=== PATIENT | female | born 1945 | race Caucasian/White ===

== ENCOUNTER 2016-11-10 14:20 | Inpatient (IN) | payer OTHER, MEDICARE ==
[~2016-11-10] VITALS: Ht 170.2 cm; Wt 77.1 kg
--- NOTE | 2016-11-10 14:38 | NUR ---
71 YEAR OLD FEMALE SENT TO ER BY HER PMD, PT STATES THAT SHE HAS BREAST CANCER AND THAT SINCE 09/18 SHE HAS NOT BEEN FEELING WELL, PT WAS ADMITTED TO [facility] 09/18 FOR PNA AND STATES THAT SHE STILL HAS A COUGH FEELS WEAK, AFEBRILE AT THIS TIME. PMD OFFICE CALLED AHEAD AND STATED THAT PT HAD + BANDS.PT PALE, STATES THAT SHE CANT WALK FAR WITHOUT GETTING WINDED
--- NOTE | 2016-11-10 14:55 | NUR ---
PT TO ER ROOM 4. AWAITING EVAL
--- NOTE | 2016-11-10 15:09 | ED DYSPNEA/ASTHMA COMPLAINT ---
See Addendum History of Present Illness General Chief Complaint: General Adult Stated Complaint: SIB DR FOR COUGHING,FEVER, Source: patient Exam Limitations: no limitations Vital Signs & Intake/Output Vital Signs & Intake/Output Vital Signs Date Time Temp Pulse Resp B/P B/P Pulse O2 O2 Flow FiO2 Mean Ox Delivery Rate 11/12 0656 99.3 87 20 110/68 92 Room Air 11/12 0000 Room Air 11/11 2215 98.2 97 20 122/70 94 Room Air 11/11 1435 Room Air ED Intake and Output 11/12 0000 11/11 1200 Intake Total 1190 750 Output Total Balance 1190 750 Intake, IV 500 750 Intake, Oral 690 Patient 170 lb Weight Weight Reported by Patient Measurement Method Allergies Coded Allergies: No Known Allergies (11/10/16) Triage Note: 71 YEAR OLD FEMALE SENT TO ER BY HER PMD, PT STATES THAT SHE HAS BREAST CANCER AND THAT SINCE 09/18 SHE HAS NOT BEEN FEELING WELL, PT WAS ADMITTED TO [facility] 09/18 FOR PNA AND STATES THAT SHE STILL HAS A COUGH FEELS WEAK, AFEBRILE AT THIS TIME. PMD OFFICE CALLED AHEAD AND STATED THAT PT HAD + BANDS.PT PALE, STATES THAT SHE CANT WALK FAR WITHOUT GETTING WINDED Triage Nurses Notes Reviewed? yes Onset: Gradual Duration: constant Timing: recent history Severity: moderate HPI: Patient is a 71-year-old female with a past medical history of breast cancer in which in 1990 she received radiation therapy for right-sided breast cancer concerns 1999 she then received chemotherapy and had a meniscectomy performed and recently patient just finished up approximate 16 weeks of chemotherapy last chemotherapy was performed August 28 in which patient's oncologist is at [facility]. Patient does state that she has a appointment for a outpatient procedure to remove concerns of a lump to patient's right meniscectomy region. Patient however does state that on September 18 she was admitted to [facility] for concerns of pneumonia and ever since patient has been complaining of persistent white cough dyspnea on exertion and shortness of breath denies weakness and fatigue and tactile fevers and chills. Denies any chest pain and arm pain jaw pain nausea vomiting melena (RACHAEL PRIDE,EYAL) Reconcile Medications Aspirin (Children's Aspirin) 81 MG TAB.CHEW 1 TAB PO DAILY Heart Health Multiple Vitamin (Multivitamins) 1 EACH TABLET 1 TAB PO DAILY Supplement Mvi, Adult No.1 With Vit K (M.v.i. Adult) 200-150/10 VIAL 1 Vial IV PER MD Suppl (Reported) (JETT SILVA,YOHANA) Past History Travel History Traveled to [place] past 21 day No Medical History Any Pertinent Medical History? see below for history Neurological: NONE EENT: NONE Cardiovascular: NONE Respiratory: pneumonia Gastrointestinal: NONE Hepatic: NONE Renal: NONE Musculoskeletal: NONE Psychiatric: NONE Endocrine: NONE Blood Disorders: NONE Cancer(s): breast cancer WELL DIGGER/Reproductive: NONE Surgical History Surgical History: non-contributory Psychosocial History What is your primary language Nigerien Tobacco Use: Never used ETOH Use: denies use Illicit Drug Use: denies illicit drug use Family History Hx Contributory? No (EYAL WILSON) Review of Systems Review of Systems Constitutional: Reports: see HPI, malaise. EENTM: Reports: see HPI. Respiratory: Reports: see HPI, cough, short of breath. Cardiovascular: Reports: see HPI. Denies: chest pain, peripheral edema. GI: Reports: no symptoms. Genitourinary: Reports: no symptoms. Musculoskeletal: Reports: no symptoms. Skin: Reports: no symptoms. Neurological/Psychological: Reports: no symptoms. Hematologic/Endocrine: Reports: no symptoms. Immunologic/Allergic: Reports: no symptoms. All Other Systems: Reviewed and Negative (EYAL WILSON) Physical Exam Physical Exam General Appearance: no apparent distress, alert, comfortable Respiratory: quiet respiration, decreased breath sounds Comments: Well-developed well-nourished person in no acute distress HEENT: Normal EENT exam, Neck: Supple, no lymphadenopathy, normal range of motion without pain or tenderness Back: Nontender, no CVA tenderness. Cardiovascular: Regular rate and rhythms no murmurs rubs or gallops, normal JVP Abdomen: Soft, nontender nondistended, no appreciable organomegaly. Normal bowel sounds. No ascites Extremity: No edema, no calf tenderness to palpation, normal and equal pulses. Neuro: Alert oriented x3, motor sensory normal, Skin: No appreciable rash on exposed skin, skin is warm and dry. Psych: Mood and affect is normal, memory and judgment is normal. Core Measures ACS in differential dx? No Severe Sepsis Present: No Septic Shock Present: No (EYAL WILSON) Progress Differential Diagnosis: asthma, AMI, bronchitis, costochondritis, CHF, COPD, musculoskeletal pain, pericarditis, pulmonary embolism, pneumonia, pneumothorax, rib fracture, unstable angina Plan of Care: Orders Procedure Date/time Status PROTHROMBIN TIME 11/12 06 Active CBC WITHOUT DIFFERENTIAL 11/12 599 Active BASIC ELECTROLYTES PLUS BUN&CR 11/12 599 Complete RT: Evaluation 11/11 1435 Active THERAPIST ORDERS 11/11 UNK Complete MISSING MEDICATION FORM 11/11 UNK Active Current Medications Sig/Clarissa Start time Last Medication Dose Stop Time Status Admin Senna 187 MG AT BEDTIME 11/12 2200 AC (Senokot) Docusate Sodium 100 MG BID 11/12 1000 AC (Colace) Polyethylene Glycol 17 GM DAILY 11/12 1000 AC (Miralax) Aspirin 81 MG DAILY 11/11 1000 AC 11/11 (Aspirin) 0920 Multivitamins 1 TAB DAILY 11/11 1000 AC Therapeutic (Theragran-M Vitamins Tabs) Guaifenesin 600 MG Q12 11/11 0045 AC 11/11 (Mucinex) 2146 Enoxaparin Sodium 80 MG BID 11/10 2323 AC 11/11 (Lovenox) 2146 Acetaminophen 650 MG Q6P PRN 11/10 2230 AC (Tylenol) Acetaminophen 1,000 MG Q6P PRN 11/10 2230 AC (Ofirmev) Morphine Sulfate 2 MG Q4P PRN 11/10 2230 AC (Morphine) Laboratory Tests 11/12/16 0630: Anion Gap 8, Estimated GFR > 60, BUN/Creatinine Ratio 5.0 L, PT Pending, INR Pending, CBC w Diff Pending, WBC Pending, RBC Pending, Hgb Pending, Hct Pending, MCV Pending, MCH Pending, RDW Pending, Plt Count Pending, MPV Pending, PUBS MCHC Pending PATIENT: LELAND TAYLOR PRESENT AGE: 71 PATIENT ACCOUNT NO: [id number] : 47 LOCATION: X[facility] ORDERING PHYSICIAN: RUBI PATIÑO MD SERVICE DATE: 11/10/16 EXAM TYPE: RAD - X[facility]-CHEST XRAY, PA AND LATERAL EXAMINATION: XR CHEST CLINICAL INFORMATION: Cough COMPARISON: None TECHNIQUE: 2 views of the chest were obtained. FINDINGS: There is no evidence of acute parenchymal disease, pneumothorax, or pleural effusion. Heart normal size. No evidence of pulmonary edema. There is some pleural thickening seen posteriorly along the left hemithorax. Port catheter in place with tip at the level of the caval atrial junction. IMPRESSION: No acute disease. DICTATED BY: Anson GUILLAUME MD Patient on examination was no apparent distress denies any chest pain at this time my suspicion of pulmonary embolism is extremely low. Patient does have persistent coughing while in her bed. Patient was given breathing treatment for symptomatic relief of decreased breath sounds noted on exam. Patient prior to arrival does have significant concerns of bandemia cultures were obtained. CT scan was remarkable for concerns of pneumonia. Discussed a short Rubi Patiño MD who advised patient to be admitted for concerns and the bandemia and pneumonia. Due to patient's history of immunocompromised chemotherapy and recent hospitalization for pneumonia Fortaz Vanco was ordered. (RACHAEL PRIDE,EYAL) Diagnostic Imaging: Viewed by Me: CT Scan. Radiology Impression: SEE COMMENTS Initial ED EKG: NSR, SINUS RHYTHM OF 92 BPM Comments: PATIENT: LELAND TAYLOR PRESENT AGE: 71 PATIENT ACCOUNT NO: [id number] : 47 LOCATION: [facility] ORDERING PHYSICIAN: EYAL PRIDE SERVICE DATE: 11/10/16 EXAM TYPE: CAT - CT ABD & PELVIS W IV CONTRAST; CT CHEST W IV CONTRAST EXAMINATION: CT CHEST WITH CONTRAST CT ABDOMEN AND PELVIS WITH CONTRAST CLINICAL INFORMATION: Cough for 6 weeks. History of breast cancer. COMPARISON: None. TECHNIQUE: Multidetector volumetric imaging was performed through the chest, abdomen and pelvis following the administration of 94 mL of Optiray 320 intravenous contrast. Sagittal and coronal reformatted images were obtained on the technologist's workstation. Axial MIP volume rendering provided. DLP: 403 mGy-cm. FINDINGS: CHEST: Lungs: The central airways are patent. Minimal focal posterior opacity in the left lower lobe. The lungs are otherwise clear. No pneumothorax or pleural effusion. There is a subpleural left lower lobe 0.4 cm nodule on series 4 image 277.. Mediastinum: Left chest wall port terminates near the cavoatrial junction. The heart is normal in size. No pericardial effusion. No mediastinal lymphadenopathy. Chest Wall/Axilla: No lymphadenopathy. No chest wall mass. Patient is status post right mastectomy with reconstruction. ABDOMEN/PELVIS: Liver, Gallbladder, Biliary Tree: The liver is normal in size, shape, and attenuation. No focal hepatic lesion or biliary ductal dilatation is present. Cholecystectomy. Pancreas: Unremarkable. Spleen: Unremarkable. Adrenal Glands: Unremarkable. Kidneys and Ureters: The kidneys are normal in size, shape, and attenuation. No hydronephrosis, hydroureter or calculi seen. No perinephric stranding. 3.7 cm right upper pole renal cyst. Bladder: Unremarkable. Gastrointestinal Tract: The stomach and small bowel are unremarkable. No dilated loops of bowel or evidence of obstruction. No colonic wall thickening or inflammatory change. Scattered colonic diverticulosis without diverticulitis. No free air or free fluid. The appendix is unremarkable. Abdominal Wall: No hernia is demonstrated. Lymphovascular Structures: Lymph nodes: Normal. Vascular: Unremarkable. Pelvic Viscera: Uterus and right adnexa are unremarkable. Left adnexal cyst measuring 3.1 cm. OSSEOUS STRUCTURES: No suspicious sclerotic or lytic bone lesions are identified. Degenerative changes of the spine. Grade 1 anterolisthesis of L4 on L5. Vacuum disc phenomenon throughout the lumbar spine. Severe degenerative changes of the hips. Sclerotic focus in the left iliac bone likely representing a bone island. 1.9 cm intra-articular body in the left subcoracoid bursa at the left shoulder. IMPRESSION: 1. Posterior focal opacity in the left lower lobe could represent atelectasis or pneumonia. 2. 0.4 cm left lower lobe pulmonary nodule. Given the patient's history, 12 month follow-up CT of the chest could be considered if no priors are available to compare. 3. No acute findings in the abdomen or pelvis. 3.1 cm left adnexal cyst noted. PATIENT: LELAND TAYLOR PRESENT AGE: 71 PATIENT ACCOUNT NO: [id number] : 47 LOCATION: [facility] ORDERING PHYSICIAN: RUBI PATIÑO MD SERVICE DATE: 11/10/16 EXAM TYPE: RAD - X[facility]-CHEST XRAY, PA AND LATERAL EXAMINATION: XR CHEST CLINICAL INFORMATION: Cough COMPARISON: None TECHNIQUE: 2 views of the chest were obtained. FINDINGS: There is no evidence of acute parenchymal disease, pneumothorax, or pleural effusion. Heart normal size. No evidence of pulmonary edema. There is some pleural thickening seen posteriorly along the left hemithorax. Port catheter in place with tip at the level of the caval atrial junction. IMPRESSION: No acute disease. DICTATED BY: HORACIO GUILLAUME MD DATE/TIME DICTATED:11/10/16 / 1225 NANOSYSTEMS ENGINEER:BIGG (EYAL WILSON) Comments: 11/10/2016 10:58:41 PM I just notified by the radiologist that this patient has small pulmonary emboli. I will notify the MOD. 11/10/16 11:30 MOD notified. (REVA SILVA,TERRY Shirley) Departure Departure Disposition: STILL A PATIENT Condition: Stable Clinical Impression Primary Impression: Pneumonia Referrals: RUBI PATIÑO MD (PCP/Family) Departure Forms: Customer Survey General Discharge Information Admission Note Spoke With: SCOTT DAVID MD Documentation of Exam: Documentation of any treatments & extenuating circumstances including Concerns Regarding Discharge (functional status, medication knowledge or non-compliance, living conditions, etc.) that warrant an admission rather than observation: [ Discussed patient with Dr. DAVID who agrees with admission for concerns of pneumonia which patient is immunocompromised currently receiving chemotherapy were patient has concerns prior to arrival of bandemia and concerns of pneumonia and persistent cough. Patient requires IV antibiotics, repeat labs and close observation.] OR/GI Note Transport To: [facility] (EYAL WILSON) Departure Prescriptions: Current Visit Scripts Aspirin (Children's Aspirin) 1 TAB PO DAILY #30 Multiple Vitamin (Multivitamins) 1 TAB PO DAILY #30 TAB PA/[facility] PHYSICIAN Co-Sign Statement Statement: ED Attending supervision documentation- [] I saw and evaluated the patient. I have also reviewed all the pertinent lab results and diagnostic results. I agree with the findings and the plan of care as documented in the PA's/[facility] PHYSICIAN's documentation. [X] I have reviewed the ED Record and agree with the PA's/[facility] PHYSICIAN's documentation. [] Additions or exceptions (if any) to the PAs/[facility] PHYSICIAN's note and plan are summarized below: [] (JETT SILVA,YOHANA) Critical Care Note Critical Care Note Critical Care Time: 30-74 min (EYAL WILSON) IMPRESSION: 1. Posterior focal opacity in the left lower lobe could represent atelectasis or pneumonia. 2. 0.4 cm left lower lobe pulmonary nodule. Given the patient's history, 12 month follow-up CT of the chest could be considered if no priors are available to compare. 3. No acute findings in the abdomen or pelvis. 3.1 cm left adnexal cyst noted. PATIENT: BRANDON,LELAND M PRESENT AGE: 71 PATIENT ACCOUNT NO: [id number] : 47 LOCATION: [facility] ORDERING PHYSICIAN: RUBI PATIÑO MD SERVICE DATE: 11/10/16 EXAM TYPE: RAD - X[facility]-CHEST XRAY, PA AND LATERAL EXAMINATION: XR CHEST CLINICAL INFORMATION: Cough COMPARISON: None TECHNIQUE: 2 views of the chest were obtained. FINDINGS: There is no evidence of acute parenchymal disease, pneumothorax, or pleural effusion. Heart normal size. No evidence of pulmonary edema. There is some pleural thickening seen posteriorly along the left hemithorax. Port catheter in place with tip at the level of the caval atrial junction. IMPRESSION: No acute disease. DICTATED BY: HORACIO GUILLAUME MD DATE/TIME DICTATED:11/10/161224 NANOSYSTEMS ENGINEER:BIGG (EYAL WILSON) Comments: 11/10/2016 10:58:41 PM I just notified by the radiologist that this patient has small pulmonary emboli. I will notify the MOD. (REVA SILVA,TERRY Shirley) Departure Departure Disposition: STILL A PATIENT Condition: Stable Clinical Impression Primary Impression: Pneumonia Referrals: RUBI PATIÑO MD (PCP/Family) Departure Forms: Customer Survey General Discharge Information Admission Note Spoke With: SCOTT DAVID MD Documentation of Exam: Documentation of any treatments & extenuating circumstances including Concerns Regarding Discharge (functional status, medication knowledge or non-compliance, living conditions, etc.) that warrant an admission rather than observation: [ Discussed patient with Dr. DAVID who agrees with admission for concerns of pneumonia which patient is immunocompromised currently receiving chemotherapy were patient has concerns prior to arrival of bandemia and concerns of pneumonia and persistent cough. Patient requires IV antibiotics, repeat labs and close observation.] OR/GI Note Transport To: [facility] (EYAL WILSON) Departure Prescriptions: Current Visit Scripts Aspirin (Children's Aspirin) 1 TAB PO DAILY #30 Multiple Vitamin (Multivitamins) 1 TAB PO DAILY #30 TAB PA/[facility] PHYSICIAN Co-Sign Statement Statement: ED Attending supervision documentation- [] I saw and evaluated the patient. I have also reviewed all the pertinent lab results and diagnostic results. I agree with the findings and the plan of care as documented in the PA's/[facility] PHYSICIAN's documentation. [X] I have reviewed the ED Record and agree with the PA's/[facility] PHYSICIAN's documentation. [] Additions or exceptions (if any) to the PAs/[facility] PHYSICIAN's note and plan are summarized below: [] (JETT SILVA,YOHANA) Critical Care Note Critical Care Note Critical Care Time: 30-74 min (EYAL WILSON)
--- NOTE | 2016-11-10 15:14 | NUR ---
SHANNEN CANO IN TO [facility].
--- NOTE | 2016-11-10 16:16 | NUR ---
BLOOD WORK SENT TO LAB. THIS RN UNABLE TO ESTABLISH IV. NAVEEN WILKINS IN FOR IV ESTABLISHMENT.
--- NOTE | 2016-11-10 16:18 | NUR ---
RESP CALLED FOR TREATMENT.
--- NOTE | 2016-11-10 16:24 | NUR ---
URINE TRIO SENT TO LAB.
[2016-11-10 16:25] LABS: ABSOLUTE BASOPHIL COUNT 0 /CUMM (0.0-0.2); ABSOLUTE EOSINOPHIL COUNT 0 /CUMM (0.0-0.7); ABSOLUTE GRANULOCYTE CT 8.9 /CUMM (1.4-6.5); ABSOLUTE LYMPH COUNT 0.4 /CUMM (1.2-3.4); ABSOLUTE MONOCYTE COUNT 0.8 /CUMM (0.10-0.60); BASOPHIL % 0 % (0.0-2.0); EOSINOPHIL % 0 % (0-5); HEMATOCRIT 25.5 % (37-47); MEAN CORPUSCULAR HGB 31.5 PG (27.0-31.0); MEAN CORPUSCULAR HGB CONC 32.9 G/DL (33.0-37.0); MEAN CORPUSCULAR VOLUME 95.7 FL (81.0-99.0); MEAN PLATELET VOLUME 8.6 FL (7.4-10.4); PLATELET COUNT 321 /CUMM (130-400); RBC DISTRIBUTION WIDTH 19.3 % (11.5-14.5); RED BLOOD CELL CT 2.67 /CUMM (4.20-5.40); WHITE BLOOD CELL COUNT 10.1 /CUMM (4.8-10.8)
--- NOTE | 2016-11-10 16:25 | NUR ---
RESP AT BEDSIDE.
--- NOTE | 2016-11-10 16:31 | NUR ---
LAB CALLED FOR FLU SWAB.
[2016-11-10 16:39] LABS: GRANULOCYTE % 88.1 % (42.2-75.2)
--- NOTE | 2016-11-10 16:56 | NUR ---
PT TO CAT SCAN AT THIS TIME.
--- NOTE | 2016-11-10 17:12 | NUR ---
FLU SWAB SENT TO LAB.
--- NOTE | 2016-11-10 17:30 | CT SCAN REPORT ---
EXAMINATION: CT CHEST WITH CONTRAST CT ABDOMEN AND PELVIS WITH CONTRAST CLINICAL INFORMATION: Cough for 6 weeks. History of breast cancer. COMPARISON: None. TECHNIQUE: Multidetector volumetric imaging was performed through the chest, abdomen and pelvis following the administration of 94 mL of Optiray 320 intravenous contrast. Sagittal and coronal reformatted images were obtained on the technologist's workstation. Axial MIP volume rendering provided. DLP: 403 mGy-cm. FINDINGS: CHEST: Lungs: The central airways are patent. Minimal focal posterior opacity in the left lower lobe. The lungs are otherwise clear. No pneumothorax or pleural effusion. There is a subpleural left lower lobe 0.4 cm nodule on series 4 image 277.. Mediastinum: Left chest wall port terminates near the cavoatrial junction. The heart is normal in size. No pericardial effusion. No mediastinal lymphadenopathy. Chest Wall/Axilla: No lymphadenopathy. No chest wall mass. Patient is status post right mastectomy with reconstruction. ABDOMEN/PELVIS: Liver, Gallbladder, Biliary Tree: The liver is normal in size, shape, and attenuation. No focal hepatic lesion or biliary ductal dilatation is present. Cholecystectomy. Pancreas: Unremarkable. Spleen: Unremarkable. Adrenal Glands: Unremarkable. Kidneys and Ureters: The kidneys are normal in size, shape, and attenuation. No hydronephrosis, hydroureter or calculi seen. No perinephric stranding. 3.7 cm right upper pole renal cyst. Bladder: Unremarkable. Gastrointestinal Tract: The stomach and small bowel are unremarkable. No dilated loops of bowel or evidence of obstruction. No colonic wall thickening or inflammatory change. Scattered colonic diverticulosis without diverticulitis. No free air or free fluid. The appendix is unremarkable. Abdominal Wall: No hernia is demonstrated. Lymphovascular Structures: Lymph nodes: Normal. Vascular: Unremarkable. Pelvic Viscera: Uterus and right adnexa are unremarkable. Left adnexal cyst measuring 3.1 cm. OSSEOUS STRUCTURES: No suspicious sclerotic or lytic bone lesions are identified. Degenerative changes of the spine. Grade 1 anterolisthesis of L4 on L5. Vacuum disc phenomenon throughout the lumbar spine. Severe degenerative changes of the hips. Sclerotic focus in the left iliac bone likely representing a bone island. 1.9 cm intra-articular body in the left subcoracoid bursa at the left shoulder. IMPRESSION: 1. Posterior focal opacity in the left lower lobe could represent atelectasis or pneumonia. 2. 0.4 cm left lower lobe pulmonary nodule. Given the patient's history, 12 month follow-up CT of the chest could be considered if no priors are available to compare. 3. No acute findings in the abdomen or pelvis. 3.1 cm left adnexal cyst noted.
--- NOTE | 2016-11-10 17:54 | NUR ---
SHANNEN CANO AT BEDSIDE TO EXPLAIN RESULTS.
--- NOTE | 2016-11-10 19:29 | NUR ---
PHARMACY CALLED FOR MUCINEX AND TESSALON CAPSULE.
--- NOTE | 2016-11-10 20:01 | NUR ---
PT MEDICATED PER EMAR.
--- NOTE | 2016-11-10 20:44 | History & Physical ---
CHRISTOPHER HIGGINS MD 11/10/162042: General Information and HPI MD Statement: I have seen and personally examined LELAND TAYLOR and documented this H&P. The patient is a 71 year old F who presented with a patient stated chief complaint of [persistent cough, abnormal labs]. Source of Information: patient Exam Limitations: no limitations History of Present Illness: 71-year-old female was sent in by her PCP, Dr. Saravia, for abnormal labs ( bandemia) and persistent cough. Patient's PMH is significant for breast cancer diagnosed in 1990 s/p lumpectomy and radiation in 1990, with recurrence at the same site in 1999, s/p mastectomy with reconstruction surgery and 2 rounds of chemotherapy, again another recurrence at the reconstruction site in March 2016, s/p 16 rounds of chemotherapy, recently completed last chemotherapy on Oct 28 2016, with shrinkage of cancer, now awaiting surgery. Patient follows up with Dr. Germaine Saleem at [place] for oncology. On September 18, she was admitted at [place] for cough, weakness, and left sided pleuritic chest pain. She was treated for pneumonia and was discharged home after 3 days, with cefuroxine and doxycycline to complete a prolonged course of antibiotics (30days). The cough has minimally improved on the antibiotics and patient was told to follow up with her PCP for the cough. Labs on the morning of admission showed WBC of 10.2 with 14 bands. On repeat labs in the ED on the same day, her WBC was 10.1, with no bands. Her cough is mainly dry, with ocassional white sputum. Over the last 2 weeks, she reports dyspnea on exertion going up the stairs (15 steps). 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 Meds: patient only takes vitamins,sandoval, and baby aspirin at home FH: grandmother with breast cancer SH: she has never smoked In the ED, tmax was 98.2, KS 109-116. RR 16-18. Systolic BP 101-119, diastolic BP 62-74. Satting 97-99% on RA. Labs were significant for h/h of 8.4/25.5 (was 9 /27.2 in the am). WBC was 10.1 without bands. Na 138, K 3.2, Bun/cr 8/0.6. Ddimer 429. Probnp 323. Negative flu. Chest CT showed posterior focal opacity in left lower lobe, possibly atelectasis vs PNA. EKG showed SR 92, QTc 461, q wave in lead I. In the ED, 1X vancomycin and ceftazidime was given, along with 1X 60 mg prednisone, robitussin, mucinex, tessalon, 1000ml NS, and duoneb. We were concerned for pulmonary embolism given wells criteria score of 5.5 (PE likely, HR > 100, hx of malignancy). D dimer elevated at 429. However, given that pt was already given contrast today, we were concerned about giving another load of contrast. Dr. Mills spoke to the radiologist, and CTA was performed, which showed right middle lobe subsegmental pulmonary embolism, right lower lobe subsegmental pulmonary embolism, may be minimal peripheral thrombus within the left lower lobe subsegmental branch, without evidence of right heart strain. 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 Home Smoking Status: Never Smoked ETOH Use: denies use Illicit Drug Use: denies illicit drug use Living Will? yes Functional Ability ADLs Independent: dressing, eating, toileting, bathing. Ambulation: independent IADLs Independent: shopping, housework, finances, food prep, telephone, transportation , medication admin. Review of Systems Review of Systems Constitutional: Reports: weakness. Denies: chills, fever. EENTM: Denies: hearing changes (chronic hard of hearing). Cardiovascular: Reports: chest pain (chest tightness on exertion). Denies: edema, orthopena, palpitations, peripheral edema, syncope. Respiratory: Reports: cough, short of breath. Denies: hemoptysis, orthopnea, sputum production (usually dry cough), wheezing. GI: Denies: abdominal pain, bloating, constipation, diarrhea, nausea, bloody stool, changes in stool, vomiting. Genitourinary: Denies: dysuria. Musculoskeletal: Denies: back pain. Exam & Diagnostic Data Last 24 Hrs of Vital Signs/I&O Vital Signs Date Time Temp Pulse Resp B/P B/P Pulse O2 O2 Flow FiO2 Mean Ox Delivery Rate 11/10 2002 97.9 109 16 101/62 97 Room Air 11/10 1836 98.2 116 18 119/74 99 Room Air 11/10 1628 98 11/10 1433 97.8 114 18 102/65 96 Room Air Intake & Output 11/10 1600 11/10 0800 11/10 0000 Intake Total 0 Output Total Balance 0 Intake, Oral 0 Patient 77.111 kg Weight Physical Exam General Appearance Alert, Oriented X3, Cooperative, No Acute Distress, appears tired HEENT Atraumatic, PERRLA, EOMI, Mucous Membr. moist/pink Neck Supple, No JVD, +2 Carotid Pulse wo Bruit Cardiovascular Regular Rate, Normal S1, Normal S2, No Murmurs, tachycardic Lungs Clear to Auscultation, Normal Air Movement Abdomen Normal Bowel Sounds, Soft, No Tenderness Neurological Normal Speech, Strength at 5/5 X4 Ext, Sensation Intact Extremities No Edema, No Tenderness/Swelling Vascular Normal Pulses, Pulses Symmetrical Last 24 Hrs of Labs/Ruel: Laboratory Tests 11/10/163: BUN Pending, Creatinine Pending, BUN/Creatinine Ratio Pending 11/10/16 1621: Urine Color YEL, Urine Clarity CLEAR, Urine pH 7.0, Ur Specific [place] <= 1.005 , Urine Protein NEG, Urine Ketones NEG, Urine Nitrite NEG, Urine Bilirubin NEG, Urine Urobilinogen 0.2, Ur Leukocyte Esterase NEG, Ur Microscopic EXAM NOT REQUIRED, Urine Hemoglobin NEG, Urine Glucose NEG 11/10/16 1605: Anion Gap 10, Estimated GFR > 60, BUN/Creatinine Ratio 13.3, Glucose 84, Calcium 9.7, Total Bilirubin 0.3, AST 14, ALT 40, Alkaline Phosphatase 75, Troponin I 0.01, Xyv-D-Uzboojyzwow Pept 323 H, Total Protein 6.1 L, Albumin 3.5, Globulin 2.6, Albumin/Globulin Ratio 1.3, D-Dimer 429 H, CBC w Diff NO MAN DIFF REQ, RBC 2.67 L, MCV 95.7, MCH 31.5 H, RDW 19.3 H, MPV 8.6, Gran % 88.1 H, Lymphocytes % 3.8 L, Monocytes % 8.1, Eosinophils % 0, Basophils % 0 L, Absolute Granulocytes 8.9 H, Absolute Lymphocytes 0.4 L, Absolute Monocytes 0.8 H, Absolute Eosinophils 0, Absolute Basophils 0, PUBS MCHC 32.9 L Microbiology 11/10 1709 NASOPHARYN: Influenza Virus A & B Rapid Smear - COMP 11/10 1628 BLOOD: Blood Culture - RECD 11/10 1621 URINE ROUT: Urine Culture - RECD 11/10 1605 BLOOD: Blood Culture - RECD 11/10 1531 LOWER RESP: Respiratory Culture - ORD 11/10 1531 LOWER RESP: Gram Stain - ORD Diagnostic Data EKG Results SR 92 QTc 461 Q wave in lead I Other Results EXAM TYPE: CAT - CTA CHEST-PULMONARY EMBOLISM EXAMINATION: CT ANGIOGRAM OF THE CHEST WITH AND WITHOUT CONTRAST (CT PULMONARY ANGIOGRAM FOR PE) CLINICAL INFORMATION: ELEVATED DIMER, history of cancer COMPARISON: Chest CT from earlier today. TECHNIQUE: Prior to contrast administration, noncontrast localization images were obtained. Subsequently, multidetector volumetric imaging was performed from the thoracic inlet to below the diaphragms following the administration of 80 mL Optiray 320 intravenous contrast. No contrast reaction reported. Sagittal, coronal, and MIP oblique sagittal reformatted images were obtained on the CT workstation, uploaded to PACS, and reviewed. Total exam dose-length product 431 mGy-cm. FINDINGS: QUALITY OF STUDY/CONTRAST BOLUS: Satisfactory PULMONARY ARTERIES: There is a right middle lobe subsegmental pulmonary embolism, series 2 image 254. There is a right lower lobe subsegmental pulmonary embolism, series 2 image 261. There may be minimal peripheral thrombus within the left lower lobe subsegmental branch on series 2 image 272. THORACIC AORTA: No aneurysm or dissection. LUNG: The central airways are patent. Redemonstration of the posterior opacity in the left lower lobe, similar to recent prior. Minimal basilar atelectasis. 0.3 cm subpleural left lower lobe nodule on series 2 image 248. 0.4 cm left lower lobe nodule series 2 image 272. PLEURA: No pleural effusion or pneumothorax. MEDIASTINUM: Normal heart size. No pericardial effusion. No hilar or mediastinal lymphadenopathy. No evidence of septal bowing or right heart strain. CHEST WALL/AXILLA: No axillary or internal mammary lymphadenopathy. Status post right mastectomy with breast reconstruction. Left chest wall port in place. OSSEOUS STRUCTURES: No acute or suspicious osseous abnormality. Degenerative changes of the spine. UPPER ABDOMEN: Status post cholecystectomy. Right upper pole renal cyst. No reflux of contrast into the hepatic veins to suggest elevated right heart pressures. IMPRESSION: 1. Small pulmonary emboli are present. No evidence of elevated right heart pressures. 2. Persistent left lower lobe focal opacity could represent atelectasis or pneumonia. 3. 0.3 cm right lower lobe pulmonary nodule and 0.4 cm left lower lobe pulmonary nodule. Twelve-month follow-up is suggested. This critical result was discussed with Fransico Rivas MD by telephone at 11/10/2016 10:55 PM and it was ascertained that the content and urgency of the report was understood at the time of direct communication. VTE: positive DICTATED BY: ARMAND SILVA,LORENA DATE/TIME DICTATED:11/10/162242 EXAM TYPE: CAT - CT ABD & PELVIS W IV CONTRAST; CT CHEST W IV CONTRAST EXAMINATION: CT CHEST WITH CONTRAST CT ABDOMEN AND PELVIS WITH CONTRAST CLINICAL INFORMATION: Cough for 6 weeks. History of breast cancer. COMPARISON: None. TECHNIQUE: Multidetector volumetric imaging was performed through the chest, abdomen and pelvis following the administration of 94 mL of Optiray 320 intravenous contrast. Sagittal and coronal reformatted images were obtained on the technologist's workstation. Axial MIP volume rendering provided. DLP: 403 mGy-cm. FINDINGS: CHEST: Lungs: The central airways are patent. Minimal focal posterior opacity in the left lower lobe. The lungs are otherwise clear. No pneumothorax or pleural effusion. There is a subpleural left lower lobe 0.4 cm nodule on series 4 image 277.. Mediastinum: Left chest wall port terminates near the cavoatrial junction. The heart is normal in size. No pericardial effusion. No mediastinal lymphadenopathy. Chest Wall/Axilla: No lymphadenopathy. No chest wall mass. Patient is status post right mastectomy with reconstruction. ABDOMEN/PELVIS: Liver, Gallbladder, Biliary Tree: The liver is normal in size, shape, and attenuation. No focal hepatic lesion or biliary ductal dilatation is present. Cholecystectomy. Pancreas: Unremarkable. Spleen: Unremarkable. Adrenal Glands: Unremarkable. Kidneys and Ureters: The kidneys are normal in size, shape, and attenuation. No hydronephrosis, hydroureter or calculi seen. No perinephric stranding. 3.7 cm right upper pole renal cyst. Bladder: Unremarkable. Gastrointestinal Tract: The stomach and small bowel are unremarkable. No dilated loops of bowel or evidence of obstruction. No colonic wall thickening or inflammatory change. Scattered colonic diverticulosis without diverticulitis. No free air or free fluid. The appendix is unremarkable. Abdominal Wall: No hernia is demonstrated. Lymphovascular Structures: Lymph nodes: Normal. Vascular: Unremarkable. Pelvic Viscera: Uterus and right adnexa are unremarkable. Left adnexal cyst measuring 3.1 cm. OSSEOUS STRUCTURES: No suspicious sclerotic or lytic bone lesions are identified. Degenerative changes of the spine. Grade 1 anterolisthesis of L4 on L5. Vacuum disc phenomenon throughout the lumbar spine. Severe degenerative changes of the hips. Sclerotic focus in the left iliac bone likely representing a bone island. 1.9 cm intra-articular body in the left subcoracoid bursa at the left shoulder. IMPRESSION: 1. Posterior focal opacity in the left lower lobe could represent atelectasis or pneumonia. 2. 0.4 cm left lower lobe pulmonary nodule. Given the patient's history, 12 month follow-up CT of the chest could be considered if no priors are available to compare. 3. No acute findings in the abdomen or pelvis. 3.1 cm left adnexal cyst noted. Assessment/Plan Assessment: 71-year-old female with PMH of breast cancer with recurrence, recently finished chemotherapy, now awaiting surgery, presented for persistent cough of 8 weeks duration, minimally improved s/p 30 days of antibiotics, and 2 weeks history of dyspnea on exertion with chest tightness. CXR showed LLL opacity which could be atelectasis vs PNA, and she was given 1Xvancomycin and ceftazidime in the ED. Labs in the morning of admission showed bandemia, but on repeat labs, there was no bands. Patient has no fever or leukocytosis, however given that she is immunocompromised s/p chemotherapy, we are inclined to continue broad spectrum antibiotics for now. We were concerned about possible pulmonary embolism given high wells score (PE likely, hx of malignancy, tachycardia, sedentary lifestyle), CTA was performed and showed right middle lobe subsegmental pulmonary embolism, right lower lobe subsegmental pulmonary embolism, may be minimal peripheral thrombus within the left lower lobe subsegmental branch, without evidence of right heart strain. # Pulmonary embolism - CTA: right middle lobe subsegmental pulmonary embolism, right lower lobe subsegmental pulmonary embolism, may be minimal peripheral thrombus within the left lower lobe subsegmental branch, without evidence of right heart strain. * Watch bun/cr for contrast induced nephropathy, ensure adequate hydration * Follow doppler LE * serial ekg and trop * echocardiogram in am to evaluate for right heart strain * Oncology consult for am * Pulm consult for am * start anticoagulation with lovenox * f/u CT in 12 months of LLL nodule # LLL PNA * Continue vancomycin and ceftazidime * Mucinex for cough * IVF * F/U BCX2, UC, LRC # Hypokalemia - K 3.2 on admission * Replete as needed # Continue home meds * Aspirin Diet: Regular diet DVT ppx: lovenox and alps Mild pp DNI As Ranked By This Provider Problem List: 1. Pulmonary embolism 2. Pneumonia Core Measures/Miscellaneous Acute Coronary Syndrome ACS Diagnosis: No Cerebrovascular Accident CVA/TIA Diagnosis: No Congestive Heart Failure CHF Diagnosis: No Venous Thromboembolism VTE Risk Factors: Age > 40, Cancer/chemo/oth therapy [facility] prophylaxis d/t: No contraindications No VTE Pharm Prophylaxis d/t: No contraindications VTE Diagnosis: Yes VTE Type: Pulmonary Embolism VTE Confirmed by (Test): CT CHEST ANGIOGRAM Severe Sepsis Severe Sepsis Present: No Septic Shock Septic Shock Present: No Miscellaneous Documentation Attending Case Discussed With: Dr. Howard Primary Care Physician: HAROON SILVA,YUDITH Patient sees these Specialists Dr. Germaine Saleem at [place] for oncology Level of Patient Care: General Medicine LISA MILLS 11/10/16 9916: General Information and HPI Allergies/Medications Home Med list Aspirin (Children's Aspirin) 81 MG TAB.CHEW 1 TAB PO DAILY Heart Health Multiple Vitamin (Multivitamins) 1 EACH TABLET 1 TAB PO DAILY Supplement Mvi, Adult No.1 With Vit K (M.v.i. Adult) 200-150/10 VIAL 1 Vial IV PER MD Suppl (Reported) Resident Review Statement Resident Statement: examined this patient, discussed with general internist, agreed with general internist, discussed with family, reviewed EMR data (avail), discussed with nursing , discussed with case mgmt, reviewed images, amended to note Other Findings: 71-year-old woman was admitted for cough, weakness and pleuritic pain on her back below the scapula. Leland is a past medical history significant for breast cancer, which was diagnosed in 1990. She, then, was treated with radiotherapy and 2 rounds of chemotherapy and had a right breast mastectomy in 1999. She had an stretch of 16 years of cabcer-freem before April 2016, when she had relapse of her breast cancer (on the right side). Leland received 16 rounds of chemotherapy for her cancer treatment, last one was done in October 28. On September 18 patient was admitted at [facility] with a chief complaint of dyspnea on exertion and persistent cough. She was diagnosed with pneumonia and after 3 days of hospitalization and was discharged home on doxycycline for 30 days. According to patient her cough improved minimally after finishing the course of antibiotics and about 2 weeks ago patient developed an exertional short of breath. She described her short of breath as constant that she became winded after flying 15 steps. She had blood work done this a.m. as it was instructed by her PCP, Dr. Gonzalez, who recommended the patient to come to the emergency room after receiving the lab results. In the emergency room patient was restarted on nebulizer treatment, by mouth prednisone, and 1 dose of IV vancomycin and ceftazidime. She denies any swelling and edema of her lower extremities, chest pain, palpitation, loss of consciousness and dizziness. Patient denies any recent travel, sick contacts. 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 Review of system: Patient mentions persistent cough and dyspnea on exertion and mild soreness on her back on the left below her shoulder bone (scapula). Vital signs: Remarkable for persistent tachycardia of 100, normal O2 saturation in room air, afebrile, borderline blood pressure of 100/62.PH/EX: AO X3, not indistress; HEET: Mucous membranes are dry; sclera pale, no JVD; HEART: S1, S2, no murmur; lungs clear, extremities: No edema no clubbing; the remainder of the physical exam was unremarkable. Pertinent labs WBC of 10.1 left shift and bandemia in the a.m labs, which resolved in the evening. Hemoglobin of 8.4 and hematocrit of 25.5. Potassium of 3.2, BUN of 8, creatinine of 0.6, troponin 0.01 proBNP 323. D-dimer more than adjusted for age (429) CTA: There is a right middle lobe subsegmental pulmonary embolism, series 2 image 254. There is a right lower lobe subsegmental pulmonary embolism, series 2 image 261. There may be minimal peripheral thrombus within the left lower lobe subsegmental branch on series 2 image 272. EKG normal sinus rhythm, 110 beats per minutes ,left axis deviation, Q1 S3, and rsR' in V1, QRS borcerline, possible left anterior hemifascicular block +/- incomplete RBBB. Well score for pulmonary embolism: 5.5 (PE likely) PESI score: class IV high risk for adverse out comes of PE. PREP score fpr PE moderate risk for all-cause , cadiogenic shock and recurrent PTE w/in the first 30 days. Assessment 71-year-old woman was admitted for dyspnea on exertion secondary to multiple subsegmental B/L PE with moderate 30-days prognosis. #1 exertional short of breath. List of differential diagnosis for this patient is broad: Including pulmonary etiologies(diffuse parenchymal lung disease secondary to chemotherapy medication, post radiation pneumonitis) or pneumonia in an immunocompromised patient, vascular(increased likelihood of pulmonary embolism in the setting of cancer), cardiac(toxic or infiltrative cardiomyopathy cardiomyopathy secondary either to chemotherapy medication or cancer) and/or ACS. CT angio was obtained, which confirmed the diagnosis of 3X subsegmental PE on left and right lung. The prognostication scores for PE (PERP score) indicates about 12% (moderate risk of complication including all-cause , cardiogenic shock or recurrent PTE with the fist 30 days. * Admit to general medical floor for stable, multiple subsegmental PE * Lovenox 80 mL subcutaneous * Continue ASA 81 mg po daily * First set of troponin was negative, repeat troponin and EKG in 6 hours to rule out ACS * No evidence of right heart restraint in CT angiogram, elevated proBNP: Obtain echo in the a.m. to assess cardiac wall motion * Continue IV hydration with normal saline 125 mL per hour and repeat BEP in the am to watch for contrast-induced nephropathy. * Doppler US of the lower extremities * Pulmonology and hematology consult in the am * Immunocompromised with imaging suggestive of pneumonia: Continue ceftazidime and IV vancomycin; panculture * TRC/NEb Pain management: Mild passive a Tylenol, moderate with IV Tylenol, severe with IV morphine 2 mg every 4 as needed Regular diet R/DNI JOANN SILVA, [facility] 11/10/16 2301: Attending MD Review Statement Attending Statement Attending MD Statement: examined this patient, discuss w/resident/PA/PHYSICIAN/OPHTHALMOLOGIST, agreed w/resident/PA/PHYSICIAN/OPHTHALMOLOGIST, discussed with family Attending Assessment/Plan: 71 yo F with h/o HTN (not on meds), breast cancer, recently treated for pneumonia at [facility] (09/18/16) with prolonged course of antibiotics (cefuroxome and doxycycline) is here with c/o weakness, poor appetite, persistent nonproductive cough and exertional dyspnea over past 3 weeks. She saw her PCP today, got a CXR which was negative and CBC which showed 14% bands with a normal WBC, and she was sent to the ER for further evaluation. She denies fever, chills , chest pain, palpitations or lightheadedness. 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 No sick contacts or recent travel. Denies lower extremity edema or previous h/o VTE. No family h/o VTE. She was diagnosed with breast cancer (1990) requiring lumpectomy and radiation therapy, she had recurrence of cancer to her right breast in year 1999 for which she underwent mastectomy and 2 cycles of chemo, was in remission until Apr 2016 when she was diagnosed with recurrence in her right breast. She is s/p 8 cycles of chemo (AC), last dose was on October 28. She follows at the [facility] with Dr. Saleem and is scheduled for breast surgery on December 02. Of note, patient reports that there was a suspicion for mets to liver, however PET scan did not detect any liver mets. Vitals stable except for persistent tachycardia to 100-110's. She has dry mucous membranes, Chest left basilar rhonchi. Left chest port site C/D/I. LE: no edema. Labs: H/H 8.4/ 25.5, WBC 10.1, D-dimer 429, K 3.2, BUN 8, creat 0.6, trop neg. UA clear. EKG: SR, TWI in lead III, aVF, Qtc 461. CT CAP with IV contrast: posterior focal opacity in LLL, 0.4 cm LLL pulmonary nodule. She had moderate probability based on Well's score. D-dimer was elevated. Discussed with radiology, after adequate hydration, recheck BUN/ creatinine were normal, we did a CTA chest which confirmed subsegmental pulmonary embolism in the RML, RLL and LLL. No evidence of right heart strain. 1. Exertional dyspnea in this immunocompromised lady with recent pneumonia, multifactorial etiology Persistent pneumonia despite antibiotic therapy, PE in the setting of cancer and Anemia that needs to be worked up. No evidence of CHF or pneumothorax. GM admit, TRC nebs, panculture, IV ceftaz and vanco for now, if she remains afebrile consider discontinuing antibiotics, mucinex BID, Pulm consult. Lovenox 1 mg/ kg BID, obtain LE dopplers, echo, rule out ACS, Oncology consult. Gentle hydration and monitor renal functions. Work up anemia guaiac all stools, check iron studies, B12 and folic acid. Keep Hb > 7.0. Type and crossmatch. Replete potassium. DVT ppx Lovenox. DNI.
--- NOTE | 2016-11-10 20:59 | NUR ---
HOUSESTAFF IN TO LUCINDA PT.
--- NOTE | 2016-11-10 21:15 | NUR ---
NAVEEN WREN AT BEDSIDE FOR IV ESTABLISHMENT FOR CTA.
--- NOTE | 2016-11-10 21:40 | NUR ---
SST TUBE SENT TO LAB.
--- NOTE | 2016-11-10 22:10 | NUR ---
DR DAVID NOTIFIED OF PT'S BUN AND CREATNINE. PER DR DAVID SHE IS WAITING ON RADIOLOGIST CONFIRMATION AND WILL RETURN CALL.
--- NOTE | 2016-11-10 22:19 | NUR ---
PER MD NAVI MILLS IT IS OKAY TO SEND PT OVER FOR CTA.
--- NOTE | 2016-11-10 22:21 | NUR ---
CAT SCAN CALLED. PER MERLE IN CAT SCAN, SHE WILL BE OVER SOON FOR PT.
--- NOTE | 2016-11-10 22:23 | NUR ---
DR DAVID AT BEDSIDE.
--- NOTE | 2016-11-10 22:28 | NUR ---
PT TAKEN FOR CAT SCAN AT THIS TIME VIA STRETCHER.
--- NOTE | 2016-11-10 22:40 | NUR ---
PT RETURNED FROM CAT SCAN.
--- NOTE | 2016-11-10 22:49 | NUR ---
REPORT GIVEN TO NAVEEN BENNETT. NAVEEN BENNETT WILL SEND DOWN TECH TO ASSIST WITH TRANSPORT.
--- NOTE | 2016-11-10 23:01 | CT SCAN REPORT ---
EXAMINATION: CT ANGIOGRAM OF THE CHEST WITH AND WITHOUT CONTRAST (CT PULMONARY ANGIOGRAM FOR PE) CLINICAL INFORMATION: ELEVATED DIMER, history of cancer COMPARISON: Chest CT from earlier today. TECHNIQUE: Prior to contrast administration, noncontrast localization images were obtained. Subsequently, multidetector volumetric imaging was performed from the thoracic inlet to below the diaphragms following the administration of 80 mL Optiray 320 intravenous contrast. No contrast reaction reported. Sagittal, coronal, and MIP oblique sagittal reformatted images were obtained on the CT workstation, uploaded to PACS, and reviewed. Total exam dose-length product 431 mGy-cm. FINDINGS: QUALITY OF STUDY/CONTRAST BOLUS: Satisfactory PULMONARY ARTERIES: There is a right middle lobe subsegmental pulmonary embolism, series 2 image 254. There is a right lower lobe subsegmental pulmonary embolism, series 2 image 261. There may be minimal peripheral thrombus within the left lower lobe subsegmental branch on series 2 image 272. THORACIC AORTA: No aneurysm or dissection. LUNG: The central airways are patent. Redemonstration of the posterior opacity in the left lower lobe, similar to recent prior. Minimal basilar atelectasis. 0.3 cm subpleural left lower lobe nodule on series 2 image 248. 0.4 cm left lower lobe nodule series 2 image 272. PLEURA: No pleural effusion or pneumothorax. MEDIASTINUM: Normal heart size. No pericardial effusion. No hilar or mediastinal lymphadenopathy. No evidence of septal bowing or right heart strain. CHEST WALL/AXILLA: No axillary or internal mammary lymphadenopathy. Status post right mastectomy with breast reconstruction. Left chest wall port in place. OSSEOUS STRUCTURES: No acute or suspicious osseous abnormality. Degenerative changes of the spine. UPPER ABDOMEN: Status post cholecystectomy. Right upper pole renal cyst. No reflux of contrast into the hepatic veins to suggest elevated right heart pressures. IMPRESSION: 1. Small pulmonary emboli are present. No evidence of elevated right heart pressures. 2. Persistent left lower lobe focal opacity could represent atelectasis or pneumonia. 3. 0.3 cm right lower lobe pulmonary nodule and 0.4 cm left lower lobe pulmonary nodule. Twelve-month follow-up is suggested. This critical result was discussed with Fransico Rivas MD by telephone at 11/10/2016 10:55 PM and it was ascertained that the content and urgency of the report was understood at the time of direct communication. VTE: positive
--- NOTE | 2016-11-10 23:03 | Admission Certification ---
Admission Certification Certification Statement - As attending physician, I certify that at the time of - admission, based on clinical presentation, severity of - symptoms, need for further diagnostic testing and - therapeutic interventions, and risk of adverse outcomes - without in-hospital treatment, in my clinical assessment, - this patient requires an acute hospital stay for a minimum - of two nights or longer. I have also considered psychsocial - factors such as support system, advanced age, financial - issues, cognitive issues, and failed out-patient treatments, - past re-admission history, safety of patient, and lack of - compliance as applicable. Specific rationale supporting this admission is: Exertional dyspnea, persistent cough s/p recent treatment for pneumonia in this patient with breast cancer undergoing chemotherapy, acute pulmonary embolism.
[2016-11-11 00:20] VITALS: BP 120/80
--- NOTE | 2016-11-11 00:31 | NUR ---
PT ARRIVED TO FLOOR VIA WHEELCHAIR, AMBULATED TO BED WITHOUT DIFFICULTY. RT ARM RESTRICTION R/T MASTECTOMY. PT ORIENTED TO ROOM AND CALL SYSTEM, IVF STARTED PER ORDERS, ALPS IN PLACE. WILL CONTINUE TO MONITOR.
[2016-11-11] MEDS ORDERED: CHILDREN'S ASPI81 M1 PO (04:24)
[2016-11-11] MEDS ORDERED: MULTIVITAMINS1 EAC9 PO (04:25)
[2016-11-11] MEDS ORDERED: M.V.I. ADULT10 ML IV (04:34)
[2016-11-11 06:59] VITALS: BP 120/70
--- NOTE | 2016-11-11 08:04 | PN- Housestaff ---
LENNY ANTONIO 11/11/16 0804: Subjective Follow-up For: pulmonary embolism left lower lobe pneumonia Complaints: pain scale (0-10) Subjective: Patient was seen and examined this morning. She is alert, awake and oriented to time place and person. No acute events happened overnight. She does report worsening cough. Denies any sputum production. Reports some chest tightness. Also reports worsening shortness of breath. Denies any nausea, vomiting, abdominal pain, change in bladder or bowel habits. Vitals stable. Afebrile heart rate 85, respiratory rate 20, blood pressure 120/ 70 , saturating at 94 on room air Review of Systems Constitutional: Denies: chills, fever. Objective Last 24 Hrs of Vital Signs/I&O Vital Signs Date Time Temp Pulse Resp B/P B/P Pulse O2 O2 Flow FiO2 Mean Ox Delivery Rate 11/11 0659 97.8 85 20 120/70 94 Room Air 11/11 0020 97.7 100 20 120/80 93 Room Air 11/11 0012 Room Air 11/10 2217 98.0 99 18 113/64 94 Room Air 11/10 2003 97.9 109 16 101/62 97 Room Air 11/10 1836 98.2 116 18 119/74 99 Room Air 11/10 1628 98 11/10 1433 97.8 114 18 102/65 96 Room Air Intake & Output 11/11 1600 11/11 0800 11/11 0000 Intake Total 750 Output Total Balance 750 Intake, IV 750 Patient 77.111 kg Weight Weight Reported by Patient Measurement Method Physical Exam General Appearance: Alert, Oriented X3, Cooperative, No Acute Distress Skin: No Rashes, No Breakdown HEENT: Atraumatic, PERRLA, EOMI Neck: Supple, No JVD Lymphatic: Cervical nl Cardiovascular: Normal S1, Normal S2, No Murmurs Lungs: Normal Air Movement Abdomen: Normal Bowel Sounds, Soft, No Tenderness Neurological: Normal Speech, Strength at 5/5 X4 Ext, Normal Tone, Cranial Nerves 3-12 NL Extremities: No Clubbing, No Cyanosis, No Edema Vascular: Pulses Symmetrical Current Medications: Current Medications Sig/Clarissa Start time Last Medication Dose Route Stop Time Status Admin Acetaminophen 650 MG Q6P PRN 11/10 2229 AC PO Acetaminophen 1,000 MG Q6P PRN 11/10 2229 AC IV Albuterol Sulfate 3 ML ONCE ONE 11/10 1545 DC 11/10 INH 11/10 1546 1620 Aspirin 81 MG DAILY 11/11 1000 AC 11/11 PO 09 Benzonatate 100 MG ONCE ONE 11/10 1914 DC 11/10 PO 11/10 Ceftazidime 1,000 MG Q8H 11/11 0330 AC 11/11 IV 0349 Ceftazidime 0 .STK-MED ONE 11/10 1920 DC .ROUTE Ceftazidime 1,000 MG ONCE ONE 11/10 1914 DC 11/10 IV 11/11 1915 193 Enoxaparin Sodium 40 MG DAILY 11/11 1000 CAN SC Enoxaparin Sodium 80 MG BID 11/10 2323 AC 11/11 SC 0920 Guaifenesin 600 MG Q12 11/11 0045 AC 11/11 PO 0920 Guaifenesin 600 MG ONCE ONE 11/10 1914 DC 11/10 PO 11/10 Guaifenesin/Codeine 10 ML ONCE ONE 11/10 1914 DC 11/10 Phosphate PO 11/10 Ipratropium [place] 2.5 ML ONCE ONE 11/10 1545 DC 11/10 INH 11/10 154 1619 Morphine Sulfate 2 MG Q4P PRN 11/10 223 AC IV Multivitamins 1 TAB DAILY 11/11 1000 AC Therapeutic PO Potassium Chloride 40 MEQ ONCE ONE 11/11 0115 DC 11/11 PO 11/11 011 0118 Prednisone 0 .STK-MED ONE 11/11 1919 DC PO Prednisone 60 MG ONCE ONE 11/10 1914 DC 11/10 PO 11/11 1915 193 Sodium Chloride 1,000 ML .Q8H 11/10 2215 AC 11/11 IV 0719 Sodium Chloride 1,000 ML BOLUS ONE 11/10 2100 DC IV 11/10 2159 Sodium Chloride 1,000 ML BOLUS ONE 11/10 1914 DC 11/10 IV 11/10 2013 194 Sodium Chloride 1,000 ML BOLUS ONE 11/10 1545 DC 11/10 IV 11/10 1644 1620 Vancomycin HCl 1,000 MG Q12H 11/11 0800 AC 11/11 Sodium Chloride 250 ML IV 0920 Vancomycin HCl 0 .STK-MED ONE 11/11 1919 DC .ROUTE Vancomycin HCl 1,000 MG ONCE ONE 11/10 1914 DC 05/23 Sodium Chloride 250 ML IV 11/10 Last 24 Hrs of Lab/Ruel Results Last 24 Hrs of Labs/Mics: Laboratory Tests 11/11/16 0640: Anion Gap 10, Estimated GFR > 60, BUN/Creatinine Ratio 8.0, Iron 51, TIBC 217 L , % Saturation 23, Ferritin 457.0 H, Vitamin B12 > 1000 H, Folate 18.8, CBC w Diff Pending, WBC Pending, RBC Pending, Hgb Pending, Hct Pending, MCV Pending, MCH Pending, RDW Pending, Plt Count Pending, MPV Pending, Gran % Pending, Lymphocytes % Pending, Monocytes % Pending, Eosinophils % Pending, Basophils % Pending, Absolute Granulocytes Pending, Absolute Lymphocytes Pending, Absolute Monocytes Pending, Absolute Eosinophils Pending, Absolute Basophils Pending, PUBS MCHC Pending 11/10/16 2133: Estimated GFR > 60, BUN/Creatinine Ratio 10.0, Troponin I 0.03 11/10/16 1621: Urine Color YEL, Urine Clarity CLEAR, Urine pH 7.0, Ur Specific [place] <= 1.005 , Urine Protein NEG, Urine Ketones NEG, Urine Nitrite NEG, Urine Bilirubin NEG, Urine Urobilinogen 0.2, Ur Leukocyte Esterase NEG, Ur Microscopic EXAM NOT REQUIRED, Urine Hemoglobin NEG, Urine Glucose NEG 11/10/16 1605: Anion Gap 10, Estimated GFR > 60, BUN/Creatinine Ratio 13.3, Glucose 84, Calcium 9.7, Total Bilirubin 0.3, AST 14, ALT 40, Alkaline Phosphatase 75, Troponin I 0.01, Rus-[place] Pept 323 H, Total Protein 6.1 L, Albumin 3.5, Globulin 2.6, Albumin/Globulin Ratio 1.3, D-Dimer 429 H, CBC w Diff NO MAN DIFF REQ, RBC 2.67 L, MCV 95.7, MCH 31.5 H, RDW 19.3 H, MPV 8.6, Gran % 88.1 H, Lymphocytes % 3.8 L, Monocytes % 8.1, Eosinophils % 0, Basophils % 0 L, Absolute Granulocytes 8.9 H, Absolute Lymphocytes 0.4 L, Absolute Monocytes 0.8 H, Absolute Eosinophils 0, Absolute Basophils 0, PUBS MCHC 32.9 L Microbiology 11/10 1709 NASOPHARYN: Influenza Virus A & B Rapid Smear - COMP 11/10 1628 BLOOD: Blood Culture - RECD 11/10 1621 URINE ROUT: Urine Culture - RES 11/10 1605 BLOOD: Blood Culture - RECD 11/10 1531 LOWER RESP: Respiratory Culture - COLB 11/10 1531 LOWER RESP: Gram Stain - COLB Assessment/Plan Assessment: 71-year-old female with PMH of breast cancer with recurrence, recently finished chemotherapy, now awaiting surgery, presented for persistent cough of 8 weeks duration, minimally improved s/p 30 days of antibiotics, and 2 weeks history of dyspnea on exertion with chest tightness. In the ED, tmax was 98.2, SC 109-116. RR 16-18. Systolic BP 101-119, diastolic BP 62-74. Satting 97-99% on RA. Labs were significant for h/h of 8.4/25.5 (was 9/27.2 in the am). WBC was 10.1 without bands. Na 138, K 3.2, Bun/cr 8/0.6. Ddimer 429. Probnp 323. Negative flu. Chest CT showed posterior focal opacity in left lower lobe, possibly atelectasis vs PNA. EKG showed SR 92, QTc 461, q wave in lead I. CTA was performed, which showed right middle lobe subsegmental pulmonary embolism, right lower lobe subsegmental pulmonary embolism, may be minimal peripheral thrombus within the left lower lobe subsegmental branch, without evidence of right heart strain In the ED, 1X vancomycin and ceftazidime was given, along with 1X 60 mg prednisone, robitussin, mucinex, tessalon, 1000ml NS, and duoneb. # Pulmonary embolism Patient presented with worsening shortness of breath, dyspnea on exertion, chest tightness, persistent cough for 8 weeks. On September 18, she was admitted at [facility] for cough, weakness, and left sided pleuritic chest pain. She was treated for pneumonia and was discharged home after 3 days, with cefuroxine and doxycycline to complete a prolonged course of antibiotics (30days). CTA: right middle lobe subsegmental pulmonary embolism, right lower lobe subsegmental pulmonary embolism, may be minimal peripheral thrombus within the left lower lobe subsegmental branch, without evidence of right heart strain. * Admitted to general medicine floor for further management of pulmonary embolism * Monitor vitals closely every shift * Maintain oxygen saturation above 90% * Provide supplemental oxygen if necessary * Monitor for any fever, leukocytosis, worsening chest pain * Lower extremity Doppler ruled out deep vein thrombosis * serial ekg and trop -negative * echocardiogram to evaluate for right heart strain * Oncology consulted * Pulm consulted * started anticoagulation with lovenox * Started bridging Lovenox with Coumadin * We will dose her Coumadin 5 mg today * Recheck INR in the morning with the goal 2-3 * f/u CT in 12 months of LLL nodule # LLL PNA Patient presented with persistent cough 8 weeks duration, minimally improved status post 30 days of antibiotics. She has worsening dyspnea on exertion for past 2 weeks associated with chest tightness. Afebrile with leukocytosis on admission. CAT scan suggestive of left lower lobe opacity which could be atelectasis versus pneumonia. * Received vancomycin and ceftazidime in the emergency room * Mucinex for cough * IVF * F/U BCX2, UC, [facility] * ID was consulted * Discontinued antibiotics * Monitor WBC and fever * Monitor off from antibiotics for now * Needs outpatient CT chest follow-up for left lower lobe opacity Right breast cancer PMH is significant for breast cancer diagnosed in 1990 s/p lumpectomy and radiation in 1990, with recurrence at the same site in 1999, s/p mastectomy with reconstruction surgery and 2 rounds of chemotherapy, again another recurrence at the reconstruction site in March 2016, s/p 16 rounds of chemotherapy, recently completed last chemotherapy on Oct 28 2016, with shrinkage of cancer, now awaiting surgery. Patient follows up with Dr. Germaine Saleem at [facility] for oncology. # Hypokalemia - K 3.2 on admission * Repleted * 3.9 this morning # Continue home meds * Aspirin Diet: Regular diet DVT ppx: lovenox and alps Mild pp DNI Problem List: 1. Pulmonary embolism Pain Ratin Pain Location: N/A Pain Goal: Remain pain free Pain Plan: Tylenol Tomorrow's Labs & Rationales: CBC in the setting of leukocytosis INR in the setting of COUMADIN DOSING VITALY AMAYA 11/11/16 1122: Attending MD Review Statement Attending Statement Attending MD Statement: examined this patient, discuss w/resident/PA/[employer], agreed w/resident/PA/[employer] WORKER, discussed with family, reviewed EMR data (avail), discussed with nursing, discussed with case mgmt, reviewed images, amended to note Attending Assessment/Plan: ASSESSMENT 1. Dyspnea on exertion. 2. Pulmonary embolism hemodynamically stable 3. h/o breast cancer follows oncology o/p. 4. Anemia of chronic disease 5. hypokalemia 6. Leukocytosis PLAN admitted to inpatient medical services lovenox bridge with coumadin, oxygen supplementation as needed, pulm appreciated , stop abx. continue current care. gi/dvt prophyalxis full code.
[2016-11-11 08:24] LABS: ABSOLUTE BASOPHIL COUNT 0 /CUMM (0.0-0.2); ABSOLUTE EOSINOPHIL COUNT 0 /CUMM (0.0-0.7); ABSOLUTE LYMPH COUNT 0.5 /CUMM (1.2-3.4); ABSOLUTE MONOCYTE COUNT 0.6 /CUMM (0.10-0.60); BASOPHIL % 0 % (0.0-2.0); EOSINOPHIL % 0 % (0-5); GRANULOCYTE % 91.3 % (42.2-75.2); HEMATOCRIT 26.3 % (37-47); MEAN CORPUSCULAR HGB 31.2 PG (27.0-31.0); MEAN CORPUSCULAR HGB CONC 32.5 G/DL (33.0-37.0); MEAN PLATELET VOLUME 9.6 FL (7.4-10.4); PLATELET COUNT 409 /CUMM (130-400); RED BLOOD CELL CT 2.74 /CUMM (4.20-5.40); WHITE BLOOD CELL COUNT 13.1 /CUMM (4.8-10.8)
--- NOTE | 2016-11-11 08:53 | Cons- Pulmonary ---
General Information and HPI Consulting Request Date of Consult: 11/11/16 Requested By: evan Reason for Consult: Pulmonary embolism History of Present Illness: 71-year-old woman with protracted history of breast cancer actively receiving chemotherapy scheduled for surgery in November who is admitted TL for left-sided pleuritic chest pain and cough treated for presumed pneumonia. She is now admitted with persistent symptoms and CTA has shown multifocal subsegmental pulmonary emboli. There remains a left lower lobe density. Her cough is for the most part nonproductive her pleuritic chest pain has resolved she's had no hemoptysis. Allergies/Medications Allergies: Coded Allergies: No Known Allergies (11/10/16) Home Med List: Aspirin (Children's Aspirin) 81 MG TAB.CHEW 1 TAB PO DAILY Heart Health Multiple Vitamin (Multivitamins) 1 EACH TABLET 1 TAB PO DAILY Supplement Mvi, Adult No.1 With Vit K (M.v.i. Adult) 200-150/10 VIAL 1 Vial IV PER MD Suppl (Reported) Review of Systems Review of Systems Constitutional: Denies: chills, fever. Cardiovascular: Denies: chest pain, edema. Respiratory: Reports: cough, short of breath. Denies: hemoptysis. 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 Home Services at Home: None Smoking Status: Never Smoked ETOH Use: denies use Illicit Drug Use: denies illicit drug use Living Will? yes Functional Ability ADLs Independent: dressing, eating, toileting, bathing. Ambulation: independent IADLs Independent: shopping, housework, finances, food prep, telephone, transportation , medication admin. Exam & Diagnostic Data Last 24 Hrs of Vital Signs/I&O Vital Signs Date Time Temp Pulse Resp B/P B/P Pulse O2 O2 Flow FiO2 Mean Ox Delivery Rate 11/11 0659 97.8 85 20 120/70 94 Room Air 11/11 0020 97.7 100 20 120/80 93 Room Air 11/11 0012 Room Air 11/10 2217 98.0 99 18 113/64 94 Room Air 11/10 2002 97.9 109 16 101/62 97 Room Air 11/10 1836 98.2 116 18 119/74 99 Room Air 11/10 1628 98 11/10 1433 97.8 114 18 102/65 96 Room Air Intake & Output 11/11 1600 11/11 0800 11/11 0000 Intake Total 750 Output Total Balance 750 Intake, IV 750 Patient 170 lb Weight Weight Reported by Patient Measurement Method Room air oxygen saturation 93-94% exam for chest shows clear lung tate breath sounds left base is somewhat diminished there are no rubs cardiac exam shows regular S1 and S2 without murmurs abdomen is soft nontender extremities without calf tenderness or edema Last 48 Hrs of Labs/Ruel: Laboratory Tests 11/11/16 0640: Anion Gap 10, Estimated GFR > 60, BUN/Creatinine Ratio 8.0, Iron 51, TIBC 217 L , % Saturation 23, Ferritin 457.0 H, Vitamin B12 Pending, Folate Pending, CBC w Diff Pending, WBC Pending, RBC Pending, Hgb Pending, Hct Pending, MCV Pending, MCH Pending, RDW Pending, Plt Count Pending, MPV Pending, Gran % Pending, Lymphocytes % Pending, Monocytes % Pending, Eosinophils % Pending, Basophils % Pending, Absolute Granulocytes Pending, Absolute Lymphocytes Pending, Absolute Monocytes Pending, Absolute Eosinophils Pending, Absolute Basophils Pending, PUBS MCHC Pending 11/10/16 2133: Estimated GFR > 60, BUN/Creatinine Ratio 10.0, Troponin I 0.03 11/10/16 1621: Urine Color YEL, Urine Clarity CLEAR, Urine pH 7.0, Ur Specific [place] <= 1.005 , Urine Protein NEG, Urine Ketones NEG, Urine Nitrite NEG, Urine Bilirubin NEG, Urine Urobilinogen 0.2, Ur Leukocyte Esterase NEG, Ur Microscopic EXAM NOT REQUIRED, Urine Hemoglobin NEG, Urine Glucose NEG 11/10/16 1605: Anion Gap 10, Estimated GFR > 60, BUN/Creatinine Ratio 13.3, Glucose 84, Calcium 9.7, Total Bilirubin 0.3, AST 14, ALT 40, Alkaline Phosphatase 75, Troponin I 0.01, Fpn-L-Bjkkximwvze Pept 323 H, Total Protein 6.1 L, Albumin 3.5, Globulin 2.6, Albumin/Globulin Ratio 1.3, D-Dimer 429 H, CBC w Diff NO MAN DIFF REQ, RBC 2.67 L, MCV 95.7, MCH 31.5 H, RDW 19.3 H, MPV 8.6, Gran % 88.1 H, Lymphocytes % 3.8 L, Monocytes % 8.1, Eosinophils % 0, Basophils % 0 L, Absolute Granulocytes 8.9 H, Absolute Lymphocytes 0.4 L, Absolute Monocytes 0.8 H, Absolute Eosinophils 0, Absolute Basophils 0, PUBS MCHC 32.9 L Microbiology 11/10 1709 NASOPHARYN: Influenza Virus A & B Rapid Smear - COMP Assessment/Plan Impression/Plan: 71-year-old woman with breast cancer recently admitted to the hospital for suspected left lower lobe pneumonia admitted now with persistent cough and found to have multifocal pulmonary emboli. Her presentation with pleuritic chest pain and cough may well have been due to pulmonary emboli or her pulmonary emboli are secondary to prior bedrest in conjunction with underlying malignancy. She is presently hemodynamically stable. Recommendations: Agree with anticoagulation and initiation of Coumadin. Evaluation for anemia. Significance of transient bandemia uncertain. Consider ID evaluation for necessity of continued antibiotics. Duration of anticoagulation will likely be extended in view of her history of malignancy Consult Acknowledgment - Thank you for your consult request.
--- NOTE | 2016-11-11 10:09 | ULTRASOUND REPORT ---
EXAMINATION: US TRIPLEX OF LOWER EXTREMITIES, BILATERAL CLINICAL INFORMATION: History of pulmonary embolus. COMPARISON: CTA thorax dated 11/10/2016. TECHNIQUE: Color-flow triplex imaging with spectral analysis and compression Doppler were performed on the lower extremities. FINDINGS: Respiratory variation, normal compression and augmented flow are noted throughout the lower extremities. The visualized common femoral vein, superficial femoral vein, profunda femoral vein, popliteal vein and visualized mid calf venous segments show no evidence of deep venous thrombosis. There is no Maki's cyst. IMPRESSION: Normal triplex scan without evidence of deep venous thrombosis involving the bilateral lower extremities.
--- NOTE | 2016-11-11 15:50 | Cons- Infect Disease ---
General Information and HPI Consulting Request Date of Consult: 11/11/16 Requested By: VITALY AMAYA MD Reason for Consult: Rule out pneumonia Source of Information: patient, family History of Present Illness: This is a 71-year-old woman with a history of breast cancer, initially diagnosed 26 years prior to admission, status post right lumpectomy and radiation, with recurrence 17 years prior to admission, status post mastectomy with reconstruction and chemotherapy, with another recurrence 7 months prior to admission, maintained on chemotherapy over the past 5 months, with last dose 2 weeks prior to admission, and with further surgery planned in 3 weeks, hospitalized at [facility] nearly 2 months prior to admission with a pneumonia after presenting with a dry cough and left chest pain, discharged after several days on an oral antibiotic which she continued for nearly one month, with the development of increasing dyspnea on exertion over the past 2 weeks prior to admission admitted on November 10 after she was referred to the emergency room because of lab work which revealed bandemia. On admission she was afebrile. Laboratory data revealed a white blood cell count of 10,000, BUN/creatinine 8 and 0.6, potassium 3.2, with normal liver enzymes, D-dimer 429. Urinalysis was negative. CT of the chest, abdomen and pelvis revealed a posterior focal opacity in the left lower lobe with no other findings. A CTA of the chest was performed and revealed small pulmonary emboli, with a persistent left lower lobe focal opacity. She was begun on Vancomycin and Ceftazidime and given 1 dose of prednisone 60 mg. She has remained afebrile overnight. She feels improved today with no complaints of chest pain or shortness of breath but does report a chronic, dry cough. Allergies/Medications Allergies: Coded Allergies: No Known Allergies (11/10/16) Home Med List: Aspirin (Children's Aspirin) 81 MG TAB.CHEW 1 TAB PO DAILY [facility] Multiple Vitamin (Multivitamins) 1 EACH TABLET 1 TAB PO DAILY Supplement Mvi, Adult No.1 With Vit K (M.v.i. Adult) 200-150/10 VIAL 1 Vial IV PER MD Suppl (Reported) Past History Travel History Traveled to [place] past 21 day No Medical History Blood Transfusion Hx: No Neurological: NONE EENT: NONE Cardiovascular: NONE Respiratory: pneumonia Gastrointestinal: NONE Hepatic: NONE Renal: NONE Musculoskeletal: NONE Psychiatric: NONE Endocrine: NONE Blood Disorders: NONE Cancer(s): breast cancer COMPREHENSIVE ADVISOR/Reproductive: NONE Isolation History: Standard Surgical History Surgical History: cholecystectomy, RT MASTECTOMY W/ LYMPH NODE REMOVAL Family History Relations & Conditions If Any: grandmother FH: breast cancer Psychosocial History Where Do You Live? Home Services at Home: None Smoking Status: Never Smoked ETOH Use: denies use Illicit Drug Use: denies illicit drug use Living Will? yes Functional Ability ADLs Independent: dressing, eating, toileting, bathing. Ambulation: independent IADLs Independent: shopping, housework, finances, food prep, telephone, transportation , medication admin. Review of Systems Review of Systems Constitutional: Denies: chills, fever. All Other Systems: Reviewed and Negative Exam & Diagnostic Data Last 24 Hrs of Vital Signs/I&O Vital Signs Date Time Temp Pulse Resp B/P B/P Pulse O2 O2 Flow FiO2 Mean Ox Delivery Rate 11/11 1435 Room Air 11/11 0800 Room Air 11/11 0659 97.8 85 20 120/70 94 Room Air 11/11 0020 97.7 100 20 120/80 93 Room Air 11/11 0012 Room Air 11/10 2217 98.0 99 18 113/64 94 Room Air 11/10 2003 97.9 109 16 101/62 97 Room Air 11/10 1836 98.2 116 18 119/74 99 Room Air 11/10 1628 98 Intake & Output 11/11 1600 11/11 0800 11/11 0000 Intake Total 750 Output Total Balance 750 Intake, IV 750 Patient 170 lb Weight Weight Reported by Patient Measurement Method Physical Exam Other Physical Findings: She is awake and alert in no acute distress. She is afebrile. Skin reveals no rash. HEENT exam is negative. Neck is supple with no adenopathy. Lungs are clear. Breasts status post right mastectomy with reconstruction. Heart regular rhythm with no murmur. Abdomen is soft, nontender with positive bowel sounds. Back no CVA tenderness. Extremities no cyanosis, clubbing or edema. Neuro is without focality. Last 24 Hours of Lab Results: Laboratory Tests 11/11 11/10 0640 2133 Chemistry Sodium (137 - 145 mmol/L) 143 Potassium (3.5 - 5.1 mmol/L) 3.9 Chloride (98 - 107 mmol/L) 110 H Carbon Dioxide (22 - 30 mmol/L) 22 Anion Gap (5 - 16) 10 BUN (7 - 17 mg/dL) 4 L 6 L Creatinine (0.5 - 1.0 mg/dL) 0.5 0.6 Estimated GFR (>60 ml/min) > 60 > 60 BUN/Creatinine Ratio (7 - 25 %) 8.0 10.0 Iron (37 - 170 ug/dL) 51 TIBC (265 - 497 ug/dL) 217 L % Saturation (16 - 45 %) 23 Ferritin (11.1 - 264 ng/mL) 457.0 H Troponin I (< 0.11 ng/ml) 0.03 Vitamin B12 (239 - 931 pg/mL) > 1000 H Folate (2.76 - 20.0 ng/mL) 18.8 Hematology CBC w Diff MAN DIFF ORDERED WBC (4.8 - 10.8 /CUMM) 13.1 H RBC (4.20 - 5.40 /CUMM) 2.74 L Hgb (12.0 - 16.0 G/DL) 8.6 L Hct (37 - 47 %) 26.3 L MCV (81.0 - 99.0 FL) 96.0 MCH (27.0 - 31.0 PG) 31.2 H RDW (11.5 - 14.5 %) 20.0 H Plt Count (130 - 400 /CUMM) 409 H MPV (7.4 - 10.4 FL) 9.6 Gran % (42.2 - 75.2 %) 91.3 H Lymphocytes % (20.5 - 51.1 %) 4.0 L Monocytes % (1.7 - 9.3 %) 4.7 Eosinophils % (0 - 5 %) 0 Basophils % (0.0 - 2.0 %) 0 L Absolute Granulocytes (1.4 - 6.5 /CUMM) 12.0 H Segmented Neutrophils (42.2 - 75.2 %) 81 H Band Neutrophils (0.0 - 5.0 %) 10 H Absolute Lymphocytes (1.2 - 3.4 /CUMM) 0.5 L Lymphocytes (20.5 - 51.1 %) 4 L Monocytes (1.7 - 9.3 %) 3 Absolute Monocytes (0.10 - 0.60 /CUMM) 0.6 Absolute Eosinophils (0.0 - 0.7 /CUMM) 0 Absolute Basophils (0.0 - 0.2 /CUMM) 0 Metamyelocytes (0.0 - 1.0 %) 2 H Platelet Estimate (ADEQUATE) VERIFIED BY SMEAR Polychromasia 1+ Anisocytosis 1+ PUBS MCHC (33.0 - 37.0 G/DL) 32.5 L 11/10 11/10 1621 1605 Chemistry Sodium (137 - 145 mmol/L) 138 Potassium (3.5 - 5.1 mmol/L) 3.2 L Chloride (98 - 107 mmol/L) 101 Carbon Dioxide (22 - 30 mmol/L) 28 Anion Gap (5 - 16) 10 BUN (7 - 17 mg/dL) 8 Creatinine (0.5 - 1.0 mg/dL) 0.6 Estimated GFR (>60 ml/min) > 60 BUN/Creatinine Ratio (7 - 25 %) 13.3 Glucose (65 - 99 mg/dL) 84 Calcium (8.4 - 10.2 mg/dL) 9.7 Total Bilirubin (0.2 - 1.3 mg/dL) 0.3 AST (14 - 36 U/L) 14 ALT (9 - 52 U/L) 40 Alkaline Phosphatase (<127 U/L) 75 Troponin I (< 0.11 ng/ml) 0.01 [id number]-[id number] Pept (<125 pg/mL) 323 H Total Protein (6.3 - 8.2 g/dL) 6.1 L Albumin (3.5 - 5.0 g/dL) 3.5 Globulin (1.9 - 4.2 gm/dL) 2.6 Albumin/Globulin Ratio (1.1 - 2.2 %) 1.3 Coagulation D-Dimer (70 - 232 ng/ml) 429 H Hematology CBC w Diff NO MAN DIFF REQ WBC (4.8 - 10.8 /CUMM) 10.1 RBC (4.20 - 5.40 /CUMM) 2.67 L Hgb (12.0 - 16.0 G/DL) 8.4 L Hct (37 - 47 %) 25.5 L MCV (81.0 - 99.0 FL) 95.7 MCH (27.0 - 31.0 PG) 31.5 H RDW (11.5 - 14.5 %) 19.3 H Plt Count (130 - 400 /CUMM) 321 MPV (7.4 - 10.4 FL) 8.6 Gran % (42.2 - 75.2 %) 88.1 H Lymphocytes % (20.5 - 51.1 %) 3.8 L Monocytes % (1.7 - 9.3 %) 8.1 Eosinophils % (0 - 5 %) 0 Basophils % (0.0 - 2.0 %) 0 L Absolute Granulocytes (1.4 - 6.5 /CUMM) 8.9 H Absolute Lymphocytes (1.2 - 3.4 /CUMM) 0.4 L Absolute Monocytes (0.10 - 0.60 /CUMM) 0.8 H Absolute Eosinophils (0.0 - 0.7 /CUMM) 0 Absolute Basophils (0.0 - 0.2 /CUMM) 0 PUBS MCHC (33.0 - 37.0 G/DL) 32.9 L Urines Urine Color (YEL,AMB,STR) YEL Urine Clarity (CLEAR) CLEAR Urine pH (5.0 - 8.0) 7.0 Ur Specific [place] (1.001 - 1.035) <= 1.005 Urine Protein (NEG,<30 MG/DL) NEG Urine Ketones (NEG) NEG Urine Nitrite (NEG) NEG Urine Bilirubin (NEG) NEG Urine Urobilinogen (0.1 - 1.0 EU/dl) 0.2 Ur Leukocyte Esterase (NEG) NEG Ur Microscopic EXAM NOT REQUIRED Urine Hemoglobin (NEG) NEG Urine Glucose (N MG/DL) NEG Last 24 Hours of Ruel Results: Blood cultures 2 November 10 negative Urine culture November 10 negative Rapid flu swab November 10 negative Diagnostic Data Recent Imaging Findings: CT of the chest, abdomen and pelvis revealed a posterior focal opacity in the left lower lobe with no other findings. CTA of the chest revealed small pulmonary emboli, with a persistent left lower lobe focal opacity Dopplers of both lower extremities November 11 negative Assessment/Plan Assessment/Plan Impression: This is a 71-year-old woman with a history of recurrent breast cancer, maintained on chemotherapy for the past 5 months, with her last treatment 2 weeks prior to admission, hospitalized nearly 2 months prior to admission at [facility] with pneumonia, treated with a one-month course of antibiotics, admitted on November 10 with a persistent dry cough and a two-week history of dyspnea on exertion , found to be afebrile with a normal white blood cell count and with a CTA of the chest revealing multiple pulmonary emboli and a left lower lobe focal opacity. I suspect that most of her acute symptoms can be explained by the pulmonary emboli. She had no fever or leukocytosis and her left lower lobe opacity on chest x-ray is more suggestive of atelectasis; therefore there is little evidence for pneumonia. Her white blood cell count did increase today, but this is likely secondary to the dose of prednisone she received in the emergency room. The etiology of her chronic cough is unclear and review of her recent PET scan and follow-up CT scan of the chest would be appropriate to rule out any underlying process related to her breast cancer. Suggestion: 1. Further management of her pulmonary emboli per Pulmonary 2. Would review recent PET scan and outpatient follow-up CT of the chest to follow up the left lower lobe opacity 3. Discontinue Vancomycin and Ceftazidime and follow off antibiotics Consult Acknowledgment - Thank you for your consult request.
[2016-11-11 22:15] VITALS: BP 122/70
[2016-11-12 06:56] VITALS: BP 110/68
--- NOTE | 2016-11-12 07:29 | PN- Pulmonary ---
Subjective HPI/Critical Care Issues: Patient feels well without chest pain or hemoptysis or shortness of breath. Objective Current Medications: Current Medications Sig/Clarissa Start time Last Medication Dose Route Stop Time Status Admin Acetaminophen 650 MG Q6P PRN 11/10 2229 AC PO Acetaminophen 1,000 MG Q6P PRN 11/10 223 AC IV Aspirin 81 MG DAILY 11/11 1000 AC 11/11 PO 0920 Ceftazidime 1,000 MG Q8H 11/11 0330 DC 11/11 IV 1154 Docusate Sodium 100 MG BID 11/12 1000 AC PO Enoxaparin Sodium 80 MG BID 11/10 2323 AC 11/11 SC 2146 Guaifenesin 600 MG Q12 11/11 0045 AC 11/11 PO 2146 Morphine Sulfate 2 MG Q4P PRN 11/10 223 AC IV Multivitamins 1 TAB DAILY 11/11 1000 AC Therapeutic PO Patient Medication 1 ED .STK-MED ONE 11/11 1317 NV Teaching ED 11/11 1318 Polyethylene Glycol 17 GM DAILY 11/12 1000 AC PO Senna 187 MG AT BEDTIME 11/12 2200 AC PO Sodium Chloride 1,000 ML .Q8H 11/10 2215 DC 11/11 IV 0719 Vancomycin HCl 1,000 MG Q12H 11/11 0800 DC 11/11 Sodium Chloride 250 ML IV 0920 Warfarin Sodium 5 MG COUMADIN 1700 ONE 11/11 1700 DC 11/11 PO 11/11 1701 1815 Vital Signs & I&O Last 24 Hrs of Vitals and I&O: Vital Signs Date Time Temp Pulse Resp B/P B/P Pulse O2 O2 Flow FiO2 Mean Ox Delivery Rate 11/12 0656 99.3 87 20 110/68 92 Room Air 11/12 0000 Room Air 11/11 2215 98.2 97 20 122/70 94 Room Air 11/11 1435 Room Air 11/11 0800 Room Air Intake & Output 11/12 0800 11/12 0000 11/11 1600 Intake Total 120 240 950 Output Total Balance 120 240 950 Intake, IV 500 Intake, Oral 120 240 450 Room oxygen saturation 90-94% exam for chest shows diminished breath sounds are no wheezes or crackles cardiac exam shows regular S1 and S2 without murmurs. Impression/Plan Impression/Plan Impression/Plan: 71-year-old woman with breast cancer recently admitted to the hospital for suspected left lower lobe pneumonia admitted now with persistent cough and found to have multifocal pulmonary emboli. Her presentation with pleuritic chest pain and cough may well have been due to pulmonary emboli or her pulmonary emboli are secondary to prior bedrest in conjunction with underlying malignancy. She is presently hemodynamically stable. Patient is status is unchanged. Etiology of her anemia should be evaluated in view of need for long-term anticoagulation. Recommendations: Agree with anticoagulation and initiation of Coumadin. Evaluation for anemia. Significance of transient bandemia uncertain. Consider ID evaluation for necessity of continued antibiotics. Duration of anticoagulation will likely be extended in view of her history of malignancy.
--- NOTE | 2016-11-12 08:06 | PN- Housestaff ---
LENNY ANTONIO 11/12/16 0806: Subjective Follow-up For: pulmonary embolism left lower lobe opacity Complaints: pain scale (0-10) Subjective: Patient was seen and examined this morning. She is alert, awake and oriented to time place and person. No acute events happened overnight. She does report mild cough, improved since admission. Denies any sputum production. Reports some chest tightness. Denies any difficulty breathing. Denies any nausea, vomiting, abdominal pain, change in bladder or bowel habits. Vitals stable. Afebrile heart rate 85, respiratory rate 20, blood pressure 120/ 70 , saturating at 94 on room air Review of Systems Constitutional: Denies: chills, diaphoresis, fever, malaise, weakness. Objective Last 24 Hrs of Vital Signs/I&O Vital Signs Date Time Temp Pulse Resp B/P B/P Pulse O2 O2 Flow FiO2 Mean Ox Delivery Rate 11/12 0800 Room Air 11/12 0656 99.3 87 20 110/68 92 Room Air 11/12 0000 Room Air 11/11 2215 98.2 97 20 122/70 94 Room Air 11/11 1435 Room Air Intake & Output 11/12 1600 11/12 0800 11/12 0000 Intake Total 120 240 Output Total Balance 120 240 Intake, Oral 120 240 Physical Exam General Appearance: Alert, Oriented X3, Cooperative, No Acute Distress Skin: No Rashes, No Breakdown, No Significant Lesion HEENT: Atraumatic, PERRLA, EOMI, Mucous Membr. moist/pink Neck: Supple, No JVD, No thryomegaly Lymphatic: Cervical nl Cardiovascular: Normal S1, Normal S2 Lungs: Normal Air Movement Abdomen: Normal Bowel Sounds, Soft, No Tenderness Extremities: No Clubbing, No Cyanosis, No Edema Vascular: Normal Pulses Current Medications: Current Medications Sig/Clarissa Start time Last Medication Dose Route Stop Time Status Admin Acetaminophen 650 MG Q6P PRN 11/10 2229 AC PO Acetaminophen 1,000 MG Q6P PRN 11/10 2229 AC IV Aspirin 81 MG DAILY 11/11 1000 AC 11/12 PO 1014 Docusate Sodium 100 MG BID 11/12 1000 AC 11/12 PO 1014 Enoxaparin Sodium 80 MG BID 11/10 2323 AC 11/12 SC 1014 Guaifenesin 600 MG Q12 11/11 0045 AC 11/12 PO 1013 Morphine Sulfate 2 MG Q4P PRN 11/10 2230 AC IV Multivitamins 1 TAB DAILY 11/11 1000 AC 11/12 Therapeutic PO 1014 Polyethylene Glycol 17 GM DAILY 11/12 1000 AC PO Senna 187 MG AT BEDTIME 11/12 2200 AC PO Warfarin Sodium 5 MG COUMADIN 1700 ONE 11/11 1700 DC 11/11 PO 11/11 1701 1815 Last 24 Hrs of Lab/Ruel Results Last 24 Hrs of Labs/Mics: Laboratory Tests 11/12/16 0630: Anion Gap 8, Estimated GFR > 60, BUN/Creatinine Ratio 5.0 L, PT 13.3 H, INR 1.27 H, CBC w Diff NO MAN DIFF REQ, RBC 2.53 L, MCV 96.8, MCH 31.6 H, RDW 20.8 H, MPV 8.8, Gran % 84.1 H, Lymphocytes % 4.6 L, Monocytes % 11.0 H, Eosinophils % 0.1, Basophils % 0.2, Absolute Granulocytes 6.4, Absolute Lymphocytes 0.4 L, Absolute Monocytes 0.8 H, Absolute Eosinophils 0, Absolute Basophils 0, PUBS MCHC 32.7 L Assessment/Plan Assessment: 71-year-old female with PMH of breast cancer with recurrence, recently finished chemotherapy, now awaiting surgery, presented for persistent cough of 8 weeks duration, minimally improved s/p 30 days of antibiotics, and 2 weeks history of dyspnea on exertion with chest tightness. In the ED, tmax was 98.2, [place] 109-116. RR 16-18. Systolic BP 101-119, diastolic BP 62-74. Satting 97-99% on RA. Labs were significant for h/h of 8.4/25.5 (was 9/27.2 in the am). WBC was 10.1 without bands. Na 138, K 3.2, Bun/cr 8/0.6. Ddimer 429. Probnp 323. Negative flu. Chest CT showed posterior focal opacity in left lower lobe, possibly atelectasis vs PNA. EKG showed SR 92, QTc 461, q wave in lead I. CTA was performed, which showed right middle lobe subsegmental pulmonary embolism, right lower lobe subsegmental pulmonary embolism, may be minimal peripheral thrombus within the left lower lobe subsegmental branch, without evidence of right heart strain In the ED, 1X vancomycin and ceftazidime was given, along with 1X 60 mg prednisone, robitussin, mucinex, tessalon, 1000ml NS, and duoneb. # Pulmonary embolism Patient presented with worsening shortness of breath, dyspnea on exertion, chest tightness, persistent cough for 8 weeks. On September 18, she was admitted at [facility] for cough, weakness, and left sided pleuritic chest pain. She was treated for pneumonia and was discharged home after 3 days, with cefuroxine and doxycycline to complete a prolonged course of antibiotics (30days). CTA: right middle lobe subsegmental pulmonary embolism, right lower lobe subsegmental pulmonary embolism, may be minimal peripheral thrombus within the left lower lobe subsegmental branch, without evidence of right heart strain. * Admitted to general medicine floor for further management of pulmonary embolism * Monitor vitals closely every shift * Maintain oxygen saturation above 90% * Provide supplemental oxygen if necessary * Monitor for any fever, leukocytosis, worsening chest pain * Lower extremity Doppler ruled out deep vein thrombosis * serial ekg and trop -negative * echocardiogram to evaluate for right heart strain * Oncology consulted * Pulm consulted * started anticoagulation with lovenox day2 * Started bridging Lovenox with Coumadin * We will dose her Coumadin 5 mg today * Recheck INR in the morning with the goal 2-3 * f/u CT in 12 months of LLL nodule Planning to discharge her today with 3 days of Lovenox and 6 months of Coumadin for pulmonary embolism. advised her to follow-up with primary care doctor and oncology at [facility] Advised to check INR in 2-3 days and report to primary care physician. Advised her to follow-up with the Coumadin clinic. # LLL opacity Patient presented with persistent cough 8 weeks duration, minimally improved status post 30 days of antibiotics. She has worsening dyspnea on exertion for past 2 weeks associated with chest tightness. Afebrile with leukocytosis on admission. CAT scan suggestive of left lower lobe opacity which could be atelectasis versus pneumonia. * Received vancomycin and ceftazidime in the emergency room * Mucinex for cough * IVF * F/U BCX2, UC, [facility] * ID was consulted * Discontinued antibiotics * Monitor WBC and fever * Monitor off from antibiotics for now * Needs outpatient CT chest follow-up for left lower lobe opacity Right breast cancer PMH is significant for breast cancer diagnosed in 1990 s/p lumpectomy and radiation in 1990, with recurrence at the same site in 1999, s/p mastectomy with reconstruction surgery and 2 rounds of chemotherapy, again another recurrence at the reconstruction site in March 2016, s/p 16 rounds of chemotherapy, recently completed last chemotherapy on Oct 28 2016, with shrinkage of cancer, now awaiting surgery. Patient follows up with Dr. Germaine Saleem at [facility] for oncology. # Hypokalemia - K 3.2 on admission * Repleted * 3.9 this morning # Continue home meds * Aspirin Diet: Regular diet DVT ppx: lovenox and alps Mild pp DNI Problem List: 1. Pulmonary embolism Pain Ratin Pain Location: n/a Pain Goal: Remain pain free Pain Plan: tylinol Tomorrow's Labs & Rationales: none VITALY AMAYA 11/12/16 1329: Attending MD Review Statement Attending Statement Attending MD Statement: examined this patient, discuss w/resident/PA/PHYSICS TECHNICAL OFFICER, agreed w/resident/PA/PHYSICS TECHNICAL OFFICER, discussed with family, reviewed EMR data (avail), discussed with nursing, discussed with case mgmt, reviewed images, amended to note Attending Assessment/Plan: Patient clinically improved and stable at d/c. ASSESSMENT 1. Dyspnea on exertion. 2. Pulmonary embolism hemodynamically stable 3. h/o breast cancer follows oncology o/p. 4. Anemia of chronic disease 5. hypokalemia 6. Leukocytosis PLAN admitted to inpatient medical services lovenox bridge with coumadin, oxygen supplementation as needed, pulm appreciated continue current care. gi/dvt prophyalxis full code. d/c today f/u PCP Dr Saravia, Oncology at [facility] as scheduled appt.
[2016-11-12 08:16] LABS: PT 13.3 SEC (9.4-12.5)
[2016-11-12] MEDS ORDERED: LOVENOX80 MG/0.1 SC ×2 (08:30→14:23)
[2016-11-12] MEDS ORDERED: COUMADIN5 M2 PO ×2 (08:32→11:04)
--- NOTE | 2016-11-12 08:34 | Patient Discharge Instructions ---
Discharge Instructions General Discharge Information You were seen/treated for: PULMONARY EMBOLISM You had these procedures: NONE Special Instructions: Please f/u pcp in one wek please f/u your oncologist in 1-2 weeks please f/u lung doctor in 1-2 weeks. please check INR in 2-3 days and fax reports to your pcp office. please follow up coumadin clinic needs two days of sc lovenox 120mg sc injection needs 6months of warfrain for pulmonary embolism Diet Continue normal diet: Yes Activity Full Activity/No Limits: Yes Acute Coronary Syndrome Inclusion Criteria At DC or during hospital stay patient has or had the following: ACS DIAGNOSIS No Discharge Core Measures Meds if any: Prescribed or Continued at Discharge Meds if any: NOT Prescribed or Continued at Discharge Congestive Heart Failure Inclusion Criteria At DC or during hospital stay patient has or had the following: CHF DIAGNOSIS No Discharge Core Measures Meds if any: Prescribed or Continued at Discharge Meds if any: NOT Prescribed or Continued at Discharge Cerebrovascular accident Inclusion Criteria At DC or during hospital stay patient has or had the following: CVA/TIA Diagnosis No Discharge Core Measures Meds if any: Prescribed or Continued at Discharge Meds if any: NOT Prescribed or Continued at Discharge Venous thromboembolism Inclusion Criteria VTE Diagnosis Yes VTE Type Pulmonary Embolism VTE Confirmed by (Test) CT CHEST ANGIOGRAM Discharge Core Measures - Per Current guidelines, there needs to be overlap - treatment for the first 5 days of Warfarin therapy. - If discharged on Warfarin prior to 5 days of - overlap therapy, the patient will need to be - assessed for post discharge needs including - *Post discharge parental anticoagulation - *Warfarin and/or parental anticoagulation education - *Follow up date to check INR post discharge At least 5 days overlap therapy as Inpatient Yes Meds if any: Prescribed or Continued at Discharge Note: Overlap Therapy is Warfarin and Anticoagulant Meds if any: NOT Prescribed or Continued at Discharge
[2016-11-12 09:04] LABS: ABSOLUTE BASOPHIL COUNT 0 /CUMM (0.0-0.2); ABSOLUTE EOSINOPHIL COUNT 0 /CUMM (0.0-0.7); ABSOLUTE GRANULOCYTE CT 6.4 /CUMM (1.4-6.5); ABSOLUTE LYMPH COUNT 0.4 /CUMM (1.2-3.4); ABSOLUTE MONOCYTE COUNT 0.8 /CUMM (0.10-0.60); BASOPHIL % 0.2 % (0.0-2.0); EOSINOPHIL % 0.1 % (0-5); GRANULOCYTE % 84.1 % (42.2-75.2); HEMATOCRIT 24.5 % (37-47); MEAN CORPUSCULAR HGB 31.6 PG (27.0-31.0); MEAN CORPUSCULAR HGB CONC 32.7 G/DL (33.0-37.0); MEAN CORPUSCULAR VOLUME 96.8 FL (81.0-99.0); MEAN PLATELET VOLUME 8.8 FL (7.4-10.4); PLATELET COUNT 393 /CUMM (130-400); RBC DISTRIBUTION WIDTH 20.8 % (11.5-14.5); RED BLOOD CELL CT 2.53 /CUMM (4.20-5.40); WHITE BLOOD CELL COUNT 7.6 /CUMM (4.8-10.8)
--- NOTE | 2016-11-12 16:07 | Discharge Summary ---
See Addendum Visit Information Visit Dates Admission Date: 11/10/16 Discharge Date: 11/12/16 Hospital Course Course Attending Physician: VITALY AMAYA MD Primary Care Physician: YUDITH PATIÑO MD Other Care Providers: MD El Schaefer MD Consulting Request: Consulting Specialty: Infectious Disease Hospital Course: 71-year-old female with PMH of breast cancer with recurrence, recently finished chemotherapy, now awaiting surgery, presented for persistent cough of 8 weeks duration, minimally improved s/p 30 days of antibiotics, and 2 weeks history of dyspnea on exertion with chest tightness. In the ED, tmax was 98.2, OH 109-116. RR 16-18. Systolic BP 101-119, diastolic BP 62-74. Satting 97-99% on RA. Labs were significant for h/h of 8.4/25.5 (was 9/27.2 in the am). WBC was 10.1 without bands. Na 138, K 3.2, Bun/cr 8/0.6. Ddimer 429. Probnp 323. Negative flu. Chest CT showed posterior focal opacity in left lower lobe, possibly atelectasis vs PNA. EKG showed SR 92, QTc 461, q wave in lead I. CTA was performed, which showed right middle lobe subsegmental pulmonary embolism, right lower lobe subsegmental pulmonary embolism, may be minimal peripheral thrombus within the left lower lobe subsegmental branch, without evidence of right heart strain In the ED, 1X vancomycin and ceftazidime was given, along with 1X 60 mg prednisone, robitussin, mucinex, tessalon, 1000ml NS, and duoneb. # Pulmonary embolism Patient presented with worsening shortness of breath, dyspnea on exertion, chest tightness, persistent cough for 8 weeks. On September 18, she was admitted at [facility] for cough, weakness, and left sided pleuritic chest pain. She was treated for pneumonia and was discharged home after 3 days, with cefuroxine and doxycycline to complete a prolonged course of antibiotics (30days). CTA: right middle lobe subsegmental pulmonary embolism, right lower lobe subsegmental pulmonary embolism, may be minimal peripheral thrombus within the left lower lobe subsegmental branch, without evidence of right heart strain. she was Admitted to general medicine floor for further management of pulmonary embolism. Monitored vitals closely every shift and Maintained oxygen saturation above 90%. Snowmaker was consulted Lower extremity Doppler ruled out deep vein thrombosis. serial ekg and trop - negative. She was started on subcutaneous Lovenox 30 mg twice a day and started bridging to Coumadin. She received 3 days of Lovenox in the hospital. She was discharged on Lovenox subcutaneous 120 mg for 2 more days and Coumadin 5 mg daily. advised her to follow-up with primary care doctor and oncology at [facility] Advised to check INR in 2-3 days and report to primary care physician. Advised her to follow-up with the Coumadin clinic. LLL opacity Patient presented with persistent cough 8 weeks duration, minimally improved status post 30 days of antibiotics. She has worsening dyspnea on exertion for past 2 weeks associated with chest tightness. Afebrile with leukocytosis on admission. CAT scan suggestive of left lower lobe opacity which could be atelectasis versus pneumonia. She Received vancomycin and ceftazidime in the emergency room. ID was consulted. Advised her to monitor her off from antibiotics. She remained afebrile with normal leukocyte count. She was given Mucinex for cough. Blood cultures were negative. She was advised to get outpatient CT chest follow-up for her left lower lobe opacity. Right breast cancer H is significant for breast cancer diagnosed in 1990 s/p lumpectomy and radiation in 1990, with recurrence at the same site in 1999, s/p mastectomy with reconstruction surgery and 2 rounds of chemotherapy, again another recurrence at the reconstruction site in March 2016, s/p 16 rounds of chemotherapy, recently completed last chemotherapy on Oct 28 2016, with shrinkage of cancer, now awaiting surgery. Patient follows up with Dr. Germaine Saleem at [facility] for oncology. Hypokalemia - K 3.2 on admission Repleted 3.9 at the time of discharge Continued home meds * Aspirin Complications: none Allergies: Coded Allergies: No Known Allergies (11/10/16) Significant Procedures: none Pertinent Lab Results: Lower extremity Dopplers FINDINGS: Respiratory variation, normal compression and augmented flow are noted throughout the lower extremities. The visualized common femoral vein, superficial femoral vein, profunda femoral vein, popliteal vein and visualized mid calf venous segments show no evidence of deep venous thrombosis. There is no Maki's cyst. IMPRESSION: Normal triplex scan without evidence of deep venous thrombosis involving the bilateral lower extremities. chest cta IMPRESSION: 1. Small pulmonary emboli are present. No evidence of elevated right heart pressures. 2. Persistent left lower lobe focal opacity could represent atelectasis or pneumonia. 3. 0.3 cm right lower lobe pulmonary nodule and 0.4 cm left lower lobe pulmonary nodule. Twelve-month follow-up is suggested. This critical result was discussed with Fransico Rivas MD by telephone at 11/10/2016 10:55 PM and it was ascertained that the content and urgency of the report was understood at the time of direct communication. VTE: positive ct chest/abdomen IMPRESSION: 1. Posterior focal opacity in the left lower lobe could represent atelectasis or pneumonia. 2. 0.4 cm left lower lobe pulmonary nodule. Given the patient's history, 12 month follow-up CT of the chest could be considered if no priors are available to compare. 3. No acute findings in the abdomen or pelvis. 3.1 cm left adnexal cyst noted. Disposition Summary Disposition Principal Diagnosis: pulmonary embolism Additional Diagnosis: left Lower lobe opacity Discharge Disposition: home health services Discharge Instructions General Discharge Information Code Status: Do Not Resucitate/Intubat Patient's Diet: As tolerated Patient's Activity: As tolerated Follow-Up Instructions/Appts: Please follow-up with primary care doctor in 1 week Please follow-up with your oncologist in one week Please follow-up with [employer] [employer] in 1-[address] chest follow-up for left lower lobe opacity Please check INR on 11/16/2016 and fax reports to your primary care doctor Please take Lovenox 120 mg once a day for 2 more days on 11/13 and 11/14 Please start taking Coumadin every day and follow at Coumadin clinic for further monitoring of INR Medications at Discharge Discharge Medications: Stop taking the following medications: Mvi, Adult No.1 With Vit K (M.v.i. Adult) 200-150/10 VIAL INTRAVEN PER Qty = 30 Start taking the following new medications: Warfarin Sodium (Coumadin) 5 MG TABLET 1 Tablet ORAL DAILY Qty = 30 No Refills Comments: Last Taken: 11/11/16 Time: 6:00 PM Enoxaparin Sodium (Lovenox) 80 MG/0.8 ML SYRINGE 120 Milligram Inject into fatty tissue ONCE DAILY Days = 2 No Refills Comments: Last Taken: 11/12/16 Time: 1000 AM Aspirin (Children's Aspirin) 81 MG TAB.CHEW 1 Tablet ORAL DAILY Qty = 30 No Refills Comments: Last Taken: 11/12/16 Time: 1000 AM Multiple Vitamin (Multivitamins) 1 EACH TABLET 1 Tablet ORAL DAILY Qty = 30 No Refills Comments: Last Taken: 11/12/16 Time: 1000 AM Copies To: HAROON SILVA,YUDITH
== END 2016-11-12 15:22 | disposition home health service (06) | DRG 176 ==
LOC: ERH 14:20 → 2NB 20:04 → ERHI 20:04 → ENRESERV 22:40 → 2NB 23:49 → ENPENDDIS 11-12 11:06 → 2NB 11-12 15:22
PROVIDERS: Physician Assistant; Student in an Organized Health Care Education/Training Program; ADMIT Internal Medicine
DX: I26.99 Other pulmonary embolism without acute cor pulmonale (principal); C50.919 Malignant neoplasm of unspecified site of unspecified female breast; E87.6 Hypokalemia; D63.0 Anemia in neoplastic disease
CPT/HCPCS: 2NSBP; 36415; 74177; 81003; 82436; 87040; 87070; 87086; 87804; 87804-59; 93005; 93010; 93970; J0713; J1650; J3370; J3490; J7040

== ENCOUNTER 2017-11-10 00:53 | Inpatient (IN) | payer OTHER, MEDICARE ==
[~2017-11-10] VITALS: Ht 170.2 cm; Wt 81.2 kg
[~2017-11-10 00:53] MED LIST: ALLEGRA ALLERG180 M1 PO; CAL MAG ZINC +1 EAC1; CHILDREN'S ASPI81 M1 PO; COUMADIN5 M2 PO; EXEMESTANE PO; FERRALET 90 TA1 EACH PO; GABAPENTIN300 M2 PO; LOVENOX80 MG/0.1 SC; M.V.I. ADULT10 ML IV; METAMUCIL FIBE3.4 GM; MULTIVITAMINS1 EAC9 PO; RENAL CAPS SOFTG1 MG PO; RESTASIS1 EACH OPH; STOOL SOFTENER100 M3; VITAMIN C500 M7 PO
--- NOTE | 2017-11-10 09:48 | Operative Report ---
Operative/Inv Procedure Report Surgery Date: 11/10/17 Name of Procedure: Left total hip arthroplasty Pre-Operative Diagnosis: Primary osteoarthritis left hip Post-Operative Diagnosis: Same Estimated Blood Loss: 300 CC Surgeon/Corporate Responsibility Officer: Elicia SILVA,Brent Sow Anesthesia: block IV Fluids: See anesthesia record Implants: Radha Accolade 227 femoral stem size 6, 36 mm head 0 neck length, 56 acetabular shell Drains: None Specimens: Left femoral head Complications: None Condition: Stable Operative Indication: Patient's 9-year-old female severe osteoarthritis of the left hip. She has failed conservative treatment for her condition and wished to proceed with a left total hip arthroplasty. The risks and benefits of the procedure discussed with the patient detail in the office. A skilled set hands was necessary provided throughout the case by physician media center assistant Jaswant Sow weighted with limb positioning and retraction as well as component assembly throughout the case. Operative/Procedure Note Note: Once informed consent was obtained and the correct limb was identified the patient was brought to operating room and placed on the table. A spinal anesthesia was performed and the patient was placed in right lateral decubitus position after Posey catheter had been placed. Left lower extremity is prepped and draped usual sterile fashion. All bony prominences well-padded and an axillary roll had been placed. A standard incision was used for a superior approach the hip. Sharp dissection carried down through skin and subcutaneous tissue and fat. The fascia for the gluteus arcenio was incised sharply from the tip of the trochanter and carried out posteriorly and superiorly. The fibers of the gluteus arcenio were bluntly dissected. Retractors placed deep to the gluteus medius muscle belly. A retractor was also placed around the femoral neck. The piriformis tendon was identified and released and sutured for tagging purposes. A superior capsulotomy was performed and the capsule was tagged as well for later repair. The hip was dislocated without complication. Capsule was removed from the femoral neck and a femoral neck cut was made 1 finger breath proximal to the lesser trochanter. The femoral head was passed off as specimen. At this point the femur was retracted anteriorly and anterior and inferior acetabular retractors were placed. Large amount of osteophyte was present around the entire acetabulum. Using a curved osteotome osteophyte was removed from acetabulum anteriorly superiorly and posteriorly. At this point pulmonology removed from the cup. This we started reaming with a size 47 reamer. As used to medialize and then we sequentially reamed from a 47 reamer up to a 55 reamer. We trialed a 56 acetabular shell which was an excellent press-fit. The acetabulum was pulse lavaged and a size 56 acetabular shell with drill holes for screw positioning was placed into the acetabulum with the appropriate version and abduction angle. Excellent press-fit of the cup was obtained. No need for screws. The acetabular liner was opened and locked into the acetabular cup. Attention was then turned to the femoral component. The femur was internally rotated and the femoral neck was exposed. Lateral femoral neck was removed with a box osteotome. The introducing reamer was used to ream and start distally. We then began broaching sequentially with a 0 broach. The broaches were lateralized nicely and we broached up to a size 6 broach. Size 6 broach had an excellent fit and was left in place. Trial reduction was done with a standard neck length and 127 neck angle. Hip reduced nicely and was stable with 90 of flexion and 30 of internal rotation 30 of adduction. Leg lengths are equal. Hip was redislocated and the components removed. The femoral canal was pulse lavaged and a size 6 Accolade 2 press-fit stem with 127 neck angle was opened and press-fit into the canal without complication. Trial reduction was done again with the 36 [place] head 0 neck length. Again the hip was stable. Hip was redislocated and a 36 mm Biolox head was opened and placed onto the stem. Hip was reduced and again stable through a range of motion. The joint was pulse lavaged copiously. At this point the piriformis and capsule returned and repaired back to the greater trochanter through drill holes. The fascia was closed with a looped #1 Maxon running suture. The subcutaneous tissues closed with #1 Vicryl and 2-0 Vicryl 100 sutures. Skin was closed priscila and sterile dressing was applied. Patient was awakened taken recovery in stable condition.
--- NOTE | 2017-11-10 10:20 | RADIOLOGY REPORT ---
EXAMINATION: XR HIP, LEFT CLINICAL INFORMATION: Status post left total hip replacement. COMPARISON: None TECHNIQUE: Single view of the left hip. FINDINGS: A left hip prosthesis is in place and normally seated. No fracture or dislocation is visible. Subcutaneous air and soft tissue inflammatory changes present around the operative site. Skin priscila are partially visualized laterally. IMPRESSION: Expected postsurgical changes, status post left total hip replacement.
[2017-11-10 11:39] VITALS: BP 110/72
--- NOTE | 2017-11-10 14:01 | Admission Core Measures ---
Acute Coronary Syndrome (CM) ACS Core Measures Acute Coronary Syndrome Diagnosis No Congestive Heart Failure (NEW) CHF Core Measures Congestive Heart Failure Diagnosis No Cerebrovascular Accident (NEW) CVA Core Measures CVA/TIA Diagnosis No Venous Thromboembolism VTE Core Adolph (View Protocol) VTE Risk Factors Surgery No Mechanical VTE Prophylaxis d/t N/A MechProphylax Ordered No VTE Pharm Prophylaxis d/t NA PharmProphylax ordered Problem List As ranked by this Provider includes Assessment & Plan 1. Unilateral primary osteoarthritis, left hip HOME MEDS Home Med List Ascorbic Acid (Vitamin C) 500 MG CAPSULE.ER 1 CAP PO DAILY SUPPLEMENT ( Reported) B Complex & C No.20/Folic Acid (Renal Caps Softgel) 1 MG CAPSULE 1 CAP PO DAILY SUPPLEMENT (Reported) Cyclosporine (Restasis) 0.05 % DROPERETTE 1 GTT OPH BID DRY EYE (Reported) Exemestane 25 MG TABLET 1 TAB PO DAILY BREAST CANCER (Reported) Fexofenadine HCl (Nisha Allergy) 180 MG TABLET 1 TAB PO DAILY ALLERGIES ( Reported) Gabapentin 300 MG CAPSULE 1 CAP PO QHS PAIN (Reported) Iron Carb,Gl/FA/B12/C/Docusate (Ferralet 90 Tablet) 90 MG-1 MG-12 MCG-120 MG-50 MG TABLET 1 TAB PO DAILY SUPPLEMENT (Reported)
[2017-11-10 14:02] VITALS: BP 126/55
--- NOTE | 2017-11-10 14:05 | Patient Discharge Instructions ---
Discharge Instructions General Discharge Information You were seen/treated for: Unilateral primary osteoarthritis left hip You had these procedures: Left total hip replacement Watch for these problems: Increasing pain despite the use of pain medication Increasing redness, warmth or swelling Drainage of any type from incision Inability to bear weight on operative leg Persistent nausea and vomiting Fever greater than 101.5 degrees Do not soak the wound: Yes No bath, but you may shower: Yes Other wound care: Please keep wound clean and dry. No ointments or lotions of any type on or near incision at any time. No exceptions. Your dressing will be changed by your nurse on the second day after your surgery. Daily dry dressing changes are recommended each day thereafter. Do not soak your wound in a bath at any time until otherwise indicated by your surgeon. You may shower, please dry wound immediately after shower with a clean towel. Diet Continue normal diet: Yes Activity Full Activity/No Limits: No Activity Self Limited: Yes Pounds, do NOT lift more than: 10 Additional ACTIVITY Info: No bending at waist greater than 90 degrees Do not internally rotate your right leg Posterior hip precautions are to remain in place until otherwise indicated by Dr. Rubi Acute Coronary Syndrome Inclusion Criteria At DC or during hospital stay patient has or had the following: ACS DIAGNOSIS No Discharge Core Measures Meds if any: Prescribed or Continued at Discharge Meds if any: NOT Prescribed or Continued at Discharge Congestive Heart Failure Inclusion Criteria At DC or during hospital stay patient has or had the following: CHF DIAGNOSIS No Discharge Core Measures Meds if any: Prescribed or Continued at Discharge Meds if any: NOT Prescribed or Continued at Discharge Cerebrovascular accident Inclusion Criteria At DC or during hospital stay patient has or had the following: CVA/TIA Diagnosis No Discharge Core Measures Meds if any: Prescribed or Continued at Discharge Meds if any: NOT Prescribed or Continued at Discharge Venous thromboembolism Inclusion Criteria VTE Diagnosis No VTE Type NONE VTE Confirmed by (Test) NONE Discharge Core Measures - Per Current guidelines, there needs to be overlap - treatment for the first 5 days of Warfarin therapy. - If discharged on Warfarin prior to 5 days of - overlap therapy, the patient will need to be - assessed for post discharge needs including - *Post discharge parental anticoagulation - *Warfarin and/or parental anticoagulation education - *Follow up date to check INR post discharge At least 5 days overlap therapy as Inpatient No Meds if any: Prescribed or Continued at Discharge Note: Overlap Therapy is Warfarin and Anticoagulant Meds if any: NOT Prescribed or Continued at Discharge
--- NOTE | 2017-11-10 14:07 | Surgical Discharge Summary ---
Visit Information Visit Dates Admission Date: 11/10/17 History of Present Illness Chief Complaint: Left hip pain related to unilateral primary osteoarthritis Medical History Blood Transfusion Hx: No Neurological: NONE EENT: cataracts Cardiovascular: NONE Respiratory: pneumonia Gastrointestinal: NONE Hepatic: NONE Renal: NONE Musculoskeletal: NONE Psychiatric: NONE Endocrine: NONE Blood Disorders: NONE Cancer(s): breast cancer EXTENSION COURSE COUNSELOR/Reproductive: NONE History of MRSA: No History of VRE: No History of CDIFF: No Isolation History: Standard Surgical History Pertinent Surgical History: cholecystectomy, RT MASTECTOMY W/ LYMPH NODE REMOVAL Family History Relations & Conditions If Any: grandmother FH: breast cancer Psychosocial History Where Do You Live? Home Who Do You Live With? Spouse Services at Home: None What is Your Primary Language? American Review of Systems: See H&P Hospital Course Course Attending Physician: Brent Rubi MD Primary Care Physician: Manjit SILVA,[facility] Course: Patient was admitted to the hospital for an elective total joint replacement. The procedure was tolerated well and patient was transferred to a general surgical floor. Diet was advanced and tolerated. The patient was evaluated and treated by physical therapy. At the time of hospital discharge, the vital signs were stable, neurovascular status was intact, and pain was controlled with the use of oral pain medications. Allergies: Coded Allergies: No Known Allergies (10/29/17) Disposition Summary Disposition Principal Diagnosis: Left hip unilateral primary osteoarthritis Additional Diagnosis: None Discharge Disposition: home health services Discharge Instructions General Discharge Information Code Status: Full Code Patient's Diet: Regular, advance as tolerated Patient's Activity: WBAT Follow-Up Instructions/Appts: Follow up with Dr. Rubi in 2 weeks from date of surgery
[2017-11-10 16:00] VITALS: BP 96/54
--- NOTE | 2017-11-10 16:20 | PN- Orthopedic ---
Subjective Subjective: POST-OP NOTE Tolerating diet. No nausea. Reports some calf "spasm". Not yet out of bed. No dizziness. No shortness of breath. No chest pains. She reports history of GI upset with percocet, so she would prefer to take vicodin. Objective Vital Signs and I&Os Vital Signs Date Time Temp Pulse Resp B/P B/P Pulse O2 O2 Flow FiO2 Mean Ox Delivery Rate 11/10 1402 98.4 98 18 126/55 95 Room Air 11/10 1139 98 Room Air 11/10 1139 98.1 79 16 110/72 98 Room Air Intake & Output 11/10 1600 11/10 0800 11/10 0000 11/09 1600 11/09 0800 11/09 0000 Intake Total 400 Output Total 250 Balance 150 Intake, IV 200 Intake, Oral 200 Number 0 Bowel Movements Output, Urine 250 Patient 179 lb Weight Weight Reported by Patient Measurement Method Physical Exam: General - alert & oriented x 3. comfortable. no acute distress. Lungs - clear bilaterally. no w/r/r. Cardiac - s1s2. reg. Abdomen - soft. nontender. - segovia draining clear, yellow urine Extremities - warm bilaterally. left hip dressing c/d/i. ice pack in place. calves soft and nontender b/l. athrombics in place. nvi. Current Medications: Current Medications Sig/Clarissa Start time Last Medication Dose Route Stop Time Status Admin Acetaminophen 500 MG Q4-6 PRN PRN 11/10 1630 AC PO Acetaminophen 0 .STK-MED ONE 11/10 0707 DC PO Acetaminophen 650 MG ONCE 11/10 0000 DC PO 11/10 235 Al Hydroxide/Mg 30 ML Q6P PRN 11/10 1200 AC Hydroxide PO Apixaban 2.5 MG BID 11/11 0900 AC PO Celecoxib 400 MG DAILY 11/11 09 AC PO Celecoxib 400 MG ONCE 11/10 0000 DC PO 11/10 235 Dexamethasone 0 .STK-MED ONE 11/10 0706 DC .ROUTE Dexamethasone 10 MG ONCE 11/10 0000 DC IV 11/10 2359 Dextrose/Lactated 1,000 ML Q13H 11/10 1200 AC 11/10 Ringer's IV 1232 Diazepam 2 MG TID PRN 11/10 1645 AC PO Docusate Sodium 100 MG BID 11/10 2100 AC PO Docusate Sodium 100 MG DAILY NEEDED PRN 11/10 1200 DC PO Exemestane 25 MG DAILY@1900 11/10 1900 AC PO Exemestane 25 MG DAILY 11/10 1353 CAN PO Fentanyl Citrate 100 MCG .STK-MED ONE 11/10 07 DC IM 11/10 07 Gabapentin 300 MG AT BEDTIME 11/10 2100 AC PO Gabapentin 0 .STK-MED ONE 11/10 0707 DC PO Gabapentin 300 MG ONCE 11/10 0000 DC PO 11/10 2359 Hydrocodone Bitart/ 1 TAB Q4-6 PRN PRN 11/10 1630 AC Acetaminophen PO Hydrocodone Bitart/ 2 TAB Q4-6 PRN PRN 11/10 1630 AC Acetaminophen PO Midazolam HCl 2 MG .STK-MED ONE 11/10 07 DC IM 11/10 0727 Morphine Sulfate 2 MG Q3P PRN 11/10 1200 AC IV Morphine Sulfate 4 MG Q3P PRN 11/10 1200 AC IV Ondansetron HCl 4 MG Q6P PRN 11/10 1200 AC IV Oxycodone HCl 0 .STK-MED ONE 11/10 07 DC PO Oxycodone HCl 10 MG ONCE 11/10 0000 DC PO 11/10 2359 Oxycodone/ 1 TAB Q4P PRN 11/10 1200 DC 11/10 Acetaminophen PO 1338 Oxycodone/ 2 TAB Q4P PRN 11/10 1200 DC Acetaminophen PO Polyethylene Glycol 17 GM DAILY NEEDED PRN 11/10 1200 AC PO Scopolamine HBr 0 .STK-MED ONE 11/10 0706 DC TOP Scopolamine HBr 1 PAT ONCE 11/10 0000 DC TOP 11/10 235 Senna/Docusate Sodium 2 TAB AT BEDTIME NEED.. 11/10 1200 AC PO Tranexamic Acid 2,000 MG .STK-MED ONE 11/10 07 DC IV 11/10 726 Vancomycin HCl 1,250 MG ONCE ONE 11/10 1900 AC Sodium Chloride 250 ML IV 11/10 195 Vancomycin HCl 1,250 MG ONCE 11/10 0000 DC Sodium Chloride 250 ML IV 11/10 2358 Assessment/Plan Assessment/Plan This 72 year old female with hx breast cancer, who is now POD#0 left total hip arthroplasty for history primary osteoarthritis advance diet as tolerated will d/c percocet and order vicodin (per patient request) add valium 2mg tid prn muscle spasm PT eval eliquis bid - dvt ppx bowel regime in place d/c segovia catheter in am f/u AM labs d/c planning, her goal is for home will d/w Core Measures Venous Thromboembolism VTE Risk Factors Surgery No Mechanical VTE Prophylaxis d/t N/A MechProphylax Ordered No VTE Pharm Prophylaxis d/t NA PharmProphylax ordered
[2017-11-10 18:00] VITALS: BP 92/60
[2017-11-10 22:27] VITALS: BP 90/52
[2017-11-11 02:00] VITALS: BP 98/48
[2017-11-11 06:00] VITALS: BP 104/56
--- NOTE | 2017-11-11 09:07 | PN- Orthopedic ---
Subjective Subjective: Just got OOB with assisstance. C/O feeling sore. IV site infiltrated. No major issues over night. Objective Vital Signs and I&Os Vital Signs Date Time Temp Pulse Resp B/P B/P Pulse O2 O2 Flow FiO2 Mean Ox Delivery Rate 11/11 0600 98.9 85 18 104/56 95 11/11 0200 99.0 88 18 98/48 94 11/10 2227 98.5 93 20 90/52 94 Room Air 11/10 1800 98.7 96 20 92/60 94 Room Air 11/10 1600 98.6 93 20 96/54 93 Room Air 11/10 1402 98.4 98 18 126/55 95 Room Air 11/10 1139 98 Room Air 11/10 1139 98.1 79 16 110/72 98 Room Air Intake & Output 11/11 1600 11/11 0800 11/11 0000 11/10 1600 11/10 0800 11/10 0000 Intake Total 720 840 400 Output Total 250 250 250 Balance 470 590 150 Intake, IV 600 600 200 Intake, Oral 120 240 200 Number 0 0 Bowel Movements Output, Urine 250 250 250 Patient 179 lb Weight Weight Reported by Patient Measurement Method Alert, appropriate, sitting in chair. Lungs clear bilat. Heart regular Abdomen benign L hip dressing is C/D/I. CMS intact bilat. Assessment/Plan Assessment/Plan 72 y o female with hx of brest Ca, PE,osteoarthritis with s/p LTHA POD#1 Stable hemodynamics. Urine output via Posey acceptable. Will d/c Posey Taking PO liquids in adequate amounts, will hep lock IVF Awaiting PT evaluation, mobilization assessment. Pt. wishes to go home eventaully. Pain controlled with current regimen Labs pending for this morning, will review results. On Eliquis BID. Core Measures Venous Thromboembolism VTE Risk Factors Surgery No Mechanical VTE Prophylaxis d/t N/A MechProphylax Ordered No VTE Pharm Prophylaxis d/t NA PharmProphylax ordered
[2017-11-11 09:19] LABS: ABSOLUTE BASOPHIL COUNT 0 /CUMM (0.0-0.2); ABSOLUTE EOSINOPHIL COUNT 0 /CUMM (0.0-0.7); ABSOLUTE GRANULOCYTE CT 8.4 /CUMM (1.4-6.5); ABSOLUTE LYMPH COUNT 0.8 /CUMM (1.2-3.4); ABSOLUTE MONOCYTE COUNT 0.5 /CUMM (0.10-0.60); BASOPHIL % 0.2 % (0.0-2.0); EOSINOPHIL % 0.4 % (0-5); GRANULOCYTE % 86.2 % (42.2-75.2); HEMATOCRIT 29.8 % (37-47); MEAN CORPUSCULAR HGB 32.5 PG (27.0-31.0); MEAN CORPUSCULAR HGB CONC 34.3 G/DL (33.0-37.0); MEAN CORPUSCULAR VOLUME 94.9 FL (81.0-99.0); MEAN PLATELET VOLUME 8.3 FL (7.4-10.4); PLATELET COUNT 202 /CUMM (130-400); RBC DISTRIBUTION WIDTH 13.3 % (11.5-14.5); RED BLOOD CELL CT 3.14 /CUMM (4.20-5.40); WHITE BLOOD CELL COUNT 9.8 /CUMM (4.8-10.8)
[2017-11-11 09:47] VITALS: BP 110/80
[2017-11-11 14:37] VITALS: BP 100/76
[2017-11-11 21:38] VITALS: BP 90/46
[2017-11-12 05:37] VITALS: BP 110/72
--- NOTE | 2017-11-12 07:55 | PN- Orthopedic ---
Subjective Subjective: POD2 LEFT REBECCA patient sitting up in bed eating breakfast, pain controlled uneventful evening Objective Vital Signs and I&Os Vital Signs Date Time Temp Pulse Resp B/P B/P Pulse O2 O2 Flow FiO2 Mean Ox Delivery Rate 11/12 0537 98.4 94 22 110/72 95 Room Air 11/11 2138 99.2 96 18 90/46 94 Room Air 11/11 1437 98.3 84 18 100/76 97 Room Air 11/11 0947 98.3 84 16 110/80 93 Intake & Output 11/12 0800 11/12 0000 11/11 1600 11/11 0800 11/11 0000 11/10 1600 Intake Total 952 445 0092 720 840 400 Output Total 800 300 250 250 250 Balance 120 -390 725 470 590 150 Intake, IV 10 225 600 600 200 Intake, Oral 120 400 800 120 240 200 Number 0 0 0 Bowel Movements Output, Urine 800 300 250 250 250 Patient 179 lb Weight Weight Reported by Patient Measurement Method Physical Exam: alert and oriented, comfortable heart-RRR without MRG chest- CTA symmetric, no CP, no SOB abdomen- rounded without distention, soft left hip - wound- CDI withtout drainage or erythema -mild thigh edema calves soft bilat and distal pulses intact Assessment/Plan Assessment/Plan POD2 LTHA AM labs pending VSS afebile, voiding and taking POs DVT proph on eliquis If passes PT and labs normal D/C home today with services Core Measures Venous Thromboembolism VTE Risk Factors Surgery No Mechanical VTE Prophylaxis d/t N/A MechProphylax Ordered No VTE Pharm Prophylaxis d/t NA PharmProphylax ordered
[2017-11-12] MEDS ORDERED: ELIQUIS2.5 M1 PO (08:00)
[2017-11-12] MEDS ORDERED: VICODIN 5-3001 EACH PO (08:00)
[2017-11-12 08:16] LABS: ABSOLUTE BASOPHIL COUNT 0 /CUMM (0.0-0.2); ABSOLUTE EOSINOPHIL COUNT 0.1 /CUMM (0.0-0.7); ABSOLUTE GRANULOCYTE CT 8.5 /CUMM (1.4-6.5); ABSOLUTE MONOCYTE COUNT 0.6 /CUMM (0.10-0.60); BASOPHIL % 0.2 % (0.0-2.0); EOSINOPHIL % 1.1 % (0-5); GRANULOCYTE % 82.7 % (42.2-75.2); MEAN CORPUSCULAR HGB 32.9 PG (27.0-31.0); MEAN CORPUSCULAR HGB CONC 34.3 G/DL (33.0-37.0); MEAN CORPUSCULAR VOLUME 95.9 FL (81.0-99.0); MEAN PLATELET VOLUME 8.8 FL (7.4-10.4); PLATELET COUNT 188 /CUMM (130-400); RBC DISTRIBUTION WIDTH 13.2 % (11.5-14.5); RED BLOOD CELL CT 2.93 /CUMM (4.20-5.40); WHITE BLOOD CELL COUNT 10.3 /CUMM (4.8-10.8)
[2017-11-12] MEDS ORDERED: NORCO 5-325 TA1 EACH PO (10:03)
== END 2017-11-12 12:40 | disposition home health service (06) | DRG 470 ==
LOC: SDA 00:53 → ENRESERV 10:21 → ENTRNSPT 11:02 → EDTRNSPT 11:23 → EDTRNSPTSTS 11:23 → 2NB 11:39 → CMPTRNSPT 11:44 → ENPENDDIS 11-12 08:05 → 2NB 11-12 12:40
PROVIDERS: Physician Assistant Surgical
PROC: 0SRB04A Replacement of Left Hip Joint with Ceramic on Polyethylene Synthetic Substitute, Uncemented, Open Approach (ICD-10-PCS; principal; 2017-11-10)
DX: M16.12 Unilateral primary osteoarthritis, left hip (principal); Z90.11 Acquired absence of right breast and nipple
CPT/HCPCS: 36415; 73501; 82436; 87086; 97110-GO; 97112-GO; 97116-GO; 97161-GP; 97530-GO; J1100; J2405; J3370; J7040